=== PATIENT | female | born 1970 | race Caucasian/White ===

== ENCOUNTER 2016-07-25 19:48 | Emergency (ER) | payer OTHER ==
[~2016-07-25] VITALS: Ht 165.1 cm; Wt 87.6 kg
[~2016-07-25 19:48] MED LIST: GABA300C5 PO; LORA1TAB12 PO; MORP1CAP62 PO; NAPR500T PO; NEXI20CA PO; ZOLO50TA PO; [UNRECOGNIZED DRUG - CODE] PO
[2016-07-25 20:00] VITALS: BP 113/77; PULSE 92; RESP 18; RESP 22; TEMP 97.8; O2SAT 100
[2016-07-25] MEDS ORDERED: SODIUM CHLOR 0.9% 1000 ML INJ 1,000 ML IV ONE (21:14)
[2016-07-25] MEDS ORDERED: SODIUM CHLORIDE 0.9% FLUSH 5 ML FLUSH IVF PRN (21:15)
[2016-07-25] MEDS ORDERED: ONDANSETRON HCL 4 MG/2 ML VIAL IVP ONE (21:15)
[2016-07-25 22:00] VITALS: BP 113/68; PULSE 86; RESP 16; O2SAT 98
--- NOTE | 2016-07-25 22:00 | RADHPO ---
EXAM DATE/TIME: 07/25/2016 21:28 [facility] COMPARISON: No previous studies available for comparison. INDICATIONS : Generalized weakness and heavy breathing. MEDICAL HISTORY : None. SURGICAL HISTORY : None. ENCOUNTER: Initial ACUITY: 1 day PAIN SCORE: 0/10 LOCATION: Bilateral chest FINDINGS: A single view of the chest demonstrates the lungs to be symmetrically aerated without evidence of mas s, infiltrate or effusion. The cardiomediastinal contours are unremarkable. Osseous structures are intact. CONCLUSION: Normal examination. Juma Lee Jr., MD on July 25, 2016 at 21:58 Board Certified Radiologist. This report was verified electronically.
[2016-07-25 22:09] LABS: BLOOD, URINE NEG (NEG); GLUCOSE,URINE NEG (NEG); KETONE, URINE 15 mg/dL (NEG); NITRITE,URINE NEG (NEG)
[2016-07-25 22:09] LABS: AUTOMATED NEUTROPHIL # 3.3 TH/MM3 (1.8-7.7); BASOPHIL % 0.5 % (0.0-2.0); EOSINOPHIL # 0.1 TH/MM3 (0-0.4); EOSINOPHIL % 1.5 % (0.0-4.0); HEMATOCRIT 46.4 % (35.0-46.0); LYMPH % 32.9 % (9.0-44.0); MEAN CELL VOLUME 77.1 FL (80.0-100.0); MEAN CORPUSCULAR HEMOGLOBIN 24.3 PG (27.0-34.0); MEAN CORPUSCULAR HGB CONC 31.6 % (32.0-36.0); MONO % 12.8 % (0.0-8.0); NEUT % 52.3 % (16.0-70.0); PLATELET COUNT 299 TH/MM3 (150-450); RED BLOOD COUNT 6.02 MIL/MM3 (4.00-5.30); RED CELL DISTRIBUTION WIDTH 14.5 % (11.6-17.2); WHITE BLOOD COUNT 6.2 TH/MM3 (4.0-11.0)
[2016-07-25 22:16] VITALS: BP 135/75; PULSE 77; RESP 16; TEMP 98.1; O2SAT 98
[2016-07-25 22:16] LABS: HEMO FLAGS AUTO DIFF
[2016-07-25 22:22] LABS: CHLORIDE 102 MEQ/L (98-107); POTASSIUM 3.6 MEQ/L (3.5-5.1); SODIUM (NA) 137 MEQ/L (136-145)
[2016-07-25 22:25] LABS: METHOD OF COLLECTION CLEAN CATCH; URINE COLOR AMBER (YELLW/STRAW)
[2016-07-25 22:26] LABS: MUCUS URINE FEW /lpf (OCC); SQUAMOUS EPITHELIAL CELL URINE 0-5 /hpf (0-5)
[2016-07-25 22:27] LABS: ANION GAP 14 MEQ/L (5-15); BICARBONATE 21.4 MEQ/L (21.0-32.0); BLOOD UREA NITROGEN 17 MG/DL (7-18); MAGNESIUM 1.9 MG/DL (1.5-2.5)
[2016-07-25 22:27] LABS: CALCIUM OXALATE CRYSTALS,URINE MOD /hpf
[2016-07-25 22:28] LABS: COMMENT (UR) CULT NOT INDICATED; CULTURE IF INDICATED CULT NOT INDICATED
[2016-07-25 22:29] LABS: ALT (GPT) 24 U/L (10-53)
[2016-07-25 22:30] LABS: AST (GOT) 18 U/L (15-37); GLOMERULAR FILTRATION RATE 90 ML/MIN (>89)
[2016-07-25 22:31] LABS: TOTAL BILIRUBIN ADULT 0.3 MG/DL (0.2-1.0)
[2016-07-25 22:33] LABS: ALKALINE PHOSPHATASE 100 U/L (45-117)
[2016-07-25] MEDS ORDERED: CELE50CA PO (22:57)
[2016-07-25 23:04] LABS: PLATELET ESTIMATE SMEAR NORMAL (NORMAL); PLATELET MORPHOLOGY NORMAL (NORMAL); SCAN/DIFF AUTO DIFF CONFIRMED
[2016-07-25 23:30] VITALS: BP 119/75; PULSE 85; RESP 18; O2SAT 97
--- NOTE | 2016-07-25 23:34 | PD ---
HPI Chief Complaint: GI Complaint Time Seen by Provider: 21:02 Travel History International Travel<30 days: No Contact w/Intl Traveler<30days: No Traveled to known affect area: No History of Present Illness HPI 45-year-old female presents to the emergency department by private transportation the care of family for 4 days of multiple episodes of diarrhea. Patient denies chills, but fever up to 100.4F . Patient has had nausea but no vomiting. Patient denies generalized abdominal pain. Patient denies melena or hematochezia. Patient denies dysuria frequency urgency flank pain or hematuria. No reported vaginal discharge or vaginal bleeding. Patient denies any recent antibiotic use. Patient does report last antibiotic was use was the first week of May she took penicillin for a dental infection and had no issues with diarrhea while on the medication or subsequently. Patient denies any dietary indiscretion well water ingestion or foreign travel. No other family members or coworkers or similar symptoms. Patient is used Imodium over- the-counter without relief. No prior history of GI issues. Denies any recent respiratory illness symptoms. PFSH Past Medical History Narrative Medical Anemia anxiety GERD gastric bypass cholecystectomy hysterectomy cervical disc disease chronic knee injury; tobacco use; nursing notes reviewed Hx Anticoagulant Therapy: No Anemia: Yes Arthritis: Yes (OA) Anxiety: Yes Diabetes: No Diminished Hearing: No GERD: Yes Headaches: Yes Herniated Disk: Yes (Neck) Musculoskeletal: Yes (Bulging discs neck) ?: Not Menopausal: Yes : 4 Para: 5 Miscarriage: 0 : 0 Past Surgical History Abdominal Surgery: Yes (Gastric bypass, "tummy tuck") Cholecystectomy: Yes Hysterectomy: Yes Other Surgery: Yes Social History Alcohol Use: No Tobacco Use: Yes (1 PPD) Substance Use: No Allergies-Medications (Allergen,Severity, Reaction): Coded Allergies: Lortab (Verified Allergy, Severe, CANNOT BREATH, 07/25/16) [place] (Verified Allergy, Severe, Swelling, 07/25/16) Reported Meds & Prescriptions Reported Meds & Active Scripts Active Flagyl (Metronidazole) 500 Mg Tab 500 Mg PO BID 7 Days Lomotil (Diphenoxylate-Atropine) 2.5-0.025 Mg Tab 1 Tab PO Q6H PRN Reported Celebrex (Celecoxib) 50 Mg Cap 50 Mg PO HS Lorzone (Chlorzoxazone) 750 Mg Tab 750 Mg PO TID Zoloft (Sertraline HCl) 50 Mg Tab 50 Mg PO DAILY Morphine ER 24 HR (Morphine Sulfate) 20 Mg Caper 20 Mg PO BID Gabapentin 300 Mg Cap 600 Mg PO BID Nexium (Esomeprazole DR) 20 Mg Capdr 20 Mg PO BID Naproxen 500 Mg Tab 500 Mg PO BID Review of Systems Except as stated in HPI: all other systems reviewed are Neg General / Constitutional: Positive: Fever (100.4F), No: Chills HENT: No: Congestion Cardiovascular: No: Chest Pain or Discomfort Respiratory: No: Shortness of Breath Gastrointestinal: Positive: Nausea, Diarrhea, Abdominal Pain (intermittent; crampy), No: Vomiting, Hematemesis, Hematochezia, Loss of Appetite Genitourinary: No: Urgency, Frequency, Dysuria, Decreased Urinary Output Musculoskeletal: No: Myalgias, Arthralgias Skin: No Rash Neurologic: No: Weakness Psychiatric: No: Anxiety Hematologic/Lymphatic: No: Lymph Node Enlargement Physical Exam Narrative GENERAL: Well-developed well-nourished female in acute distress no respiratory distress SKIN: Warm and dry. HEAD: Normocephalic. EYES: No scleral icterus. No injection or drainage. NECK: Supple, trachea midline. No JVD or lymphadenopathy. CARDIOVASCULAR: Regular rate and rhythm without murmurs, gallops, or rubs. RESPIRATORY: Breath sounds equal bilaterally. No accessory muscle use. GASTROINTESTINAL: Abdomen soft, diffusely non-tender to direct palpation without guarding or rebound, nondistended. MUSCULOSKELETAL: No cyanosis, or edema. Right knee brace which patient reports is chronic. BACK: Nontender without obvious deformity. No CVA tenderness. Data Data Last Documented VS Vital Signs Date Time Temp Pulse Resp B/P Pulse Ox O2 Delivery O2 Flow Rate FiO2 07/25/16 22:16 98.1 77 16 135/75 98 Room Air Orders Complete Blood Count With Diff (07/25/16 21:14) Comprehensive Metabolic Panel (07/25/16 21:14) Urinalysis - C+S If Indicated (07/25/16 21:14) Lipase (07/25/16 21:14) Ct Abd/Pel W Iv Contrast(Rout) (07/25/16 ) Iv Access Insert/Monitor (07/25/16 21:14) Ecg Monitoring (07/25/16 21:14) Oximetry (07/25/16 21:14) Ondansetron Inj (Zofran Inj) (07/25/16 21:15) Sodium Chlor 0.9% 1000 Ml Inj (Ns 1000 M (07/25/16 21:14) Sodium Chloride 0.9% Flush (Ns Flush) (07/25/16 21:15) Blood Culture (07/25/16 21:14) C Diff Toxin Pcr (07/25/16 21:14) Enteric Path (Stool) (07/25/16 21:14) Chest, Single Ap (07/25/16 21:14) Ed Urine Pregnancytest Poc (07/25/16 21:14) Magnesium (Mg) (07/25/16 21:14) Iohexol 350 Inj (Omnipaque 350 Inj) (07/25/16 23:48) Sodium Chlor 0.9% 1000 Ml Inj (Ns 1000 M (07/26/16 00:45) Labs Laboratory Tests Test 07/25/16 07/25/16 21:10 21:50 Urine Collection Type CLEAN CATCH Urine Color SAVITA Urine Turbidity CLEAR Urine pH 5.0 Urine Specific [place] GREATER THAN 1.035 Urine Protein TRACE mg/dL Urine Glucose (UA) NEG mg/dL Urine Ketones 15 mg/dL Urine Occult Blood NEG Urine Nitrite NEG Urine Bilirubin NEG Urine Leukocyte Esterase NEG Urine Squamous Epithelial 0-5 /hpf Cells Urine Calcium Oxalate Crystals MOD /hpf Urine Mucus FEW /lpf Microscopic Urinalysis Comment CULT NOT INDICATED White Blood Count 6.2 TH/MM3 Red Blood Count 6.02 MIL/MM3 Hemoglobin 14.6 GM/DL Hematocrit 46.4 % Mean Corpuscular Volume 77.1 FL Mean Corpuscular Hemoglobin 24.3 PG Mean Corpuscular Hemoglobin 31.6 % Concent Red Cell Distribution Width 14.5 % Platelet Count 299 TH/MM3 Mean Platelet Volume 8.3 FL Neutrophils (%) (Auto) 52.3 % Lymphocytes (%) (Auto) 32.9 % Monocytes (%) (Auto) 12.8 % Eosinophils (%) (Auto) 1.5 % Basophils (%) (Auto) 0.5 % Neutrophils # (Auto) 3.3 TH/MM3 Lymphocytes # (Auto) 2.0 TH/MM3 Monocytes # (Auto) 0.8 TH/MM3 Eosinophils # (Auto) 0.1 TH/MM3 Basophils # (Auto) 0.0 TH/MM3 CBC Comment AUTO DIFF Differential Comment AUTO DIFF CONFIRMED Platelet Estimate NORMAL Platelet Morphology Comment NORMAL Sodium Level 137 MEQ/L Potassium Level 3.6 MEQ/L Chloride Level 102 MEQ/L Carbon Dioxide Level 21.4 MEQ/L Anion Gap 14 MEQ/L Blood Urea Nitrogen 17 MG/DL Creatinine 0.70 MG/DL Estimat Glomerular Filtration 90 ML/MIN Rate Random Glucose 76 MG/DL Calcium Level 9.8 MG/DL Magnesium Level 1.9 MG/DL Total Bilirubin 0.3 MG/DL Aspartate Amino Transf 18 U/L (AST/SGOT) Alanine Aminotransferase 24 U/L (ALT/SGPT) Alkaline Phosphatase 100 U/L Total Protein 8.7 GM/DL Albumin 3.1 GM/DL Lipase 67 U/L [facility] Medical Decision Making Medical Screen Exam Complete: Yes Emergency Medical Condition: Yes Medical Record Reviewed: Yes Interpretation(s) CBC with automated differential hemoconcentration with hematocrit of 46.4% normal total white cell count and automated differential Complete metabolic panel with lipase values are within normal range including normal electrolytes bicarbonate and anion gap Urinalysis: Elevated specific gravity greater than 1.035 as well as mild ketones and calcium oxalate crystals otherwise values grossly within normal range CT abd/pel: No acute abnormality per reading radiologist evidence of previous gastric bypass CONCLUSION: 1. No acute abnormality. 2. Prior gastric bypass. 3. Prior cholecystectomy. 4. Bilateral L5 pars defects with anterolisthesis. Juma Lee Jr., MD on July 26, 2016 at 0:19 Board Certified Radiologist. This report was verified electronically. Laboratory Tests Test 07/25/16 07/25/16 21:10 21:50 Urine Collection Type CLEAN CATCH Urine Color SAVITA Urine Turbidity CLEAR Urine pH 5.0 Urine Specific [place] GREATER THAN 1.035 Urine Protein TRACE mg/dL Urine Glucose (UA) NEG mg/dL Urine Ketones 15 mg/dL Urine Occult Blood NEG Urine Nitrite NEG Urine Bilirubin NEG Urine Leukocyte Esterase NEG Urine Squamous Epithelial 0-5 /hpf Cells Urine Calcium Oxalate Crystals MOD /hpf Urine Mucus FEW /lpf Microscopic Urinalysis Comment CULT NOT INDICATED White Blood Count 6.2 TH/MM3 Red Blood Count 6.02 MIL/MM3 Hemoglobin 14.6 GM/DL Hematocrit 46.4 % Mean Corpuscular Volume 77.1 FL Mean Corpuscular Hemoglobin 24.3 PG Mean Corpuscular Hemoglobin 31.6 % Concent Red Cell Distribution Width 14.5 % Platelet Count 299 TH/MM3 Mean Platelet Volume 8.3 FL Neutrophils (%) (Auto) 52.3 % Lymphocytes (%) (Auto) 32.9 % Monocytes (%) (Auto) 12.8 % Eosinophils (%) (Auto) 1.5 % Basophils (%) (Auto) 0.5 % Neutrophils # (Auto) 3.3 TH/MM3 Lymphocytes # (Auto) 2.0 TH/MM3 Monocytes # (Auto) 0.8 TH/MM3 Eosinophils # (Auto) 0.1 TH/MM3 Basophils # (Auto) 0.0 TH/MM3 CBC Comment AUTO DIFF Differential Comment AUTO DIFF CONFIRMED Platelet Estimate NORMAL Platelet Morphology Comment NORMAL Sodium Level 137 MEQ/L Potassium Level 3.6 MEQ/L Chloride Level 102 MEQ/L Carbon Dioxide Level 21.4 MEQ/L Anion Gap 14 MEQ/L Blood Urea Nitrogen 17 MG/DL Creatinine 0.70 MG/DL Estimat Glomerular Filtration 90 ML/MIN Rate Random Glucose 76 MG/DL Calcium Level 9.8 MG/DL Magnesium Level 1.9 MG/DL Total Bilirubin 0.3 MG/DL Aspartate Amino Transf 18 U/L (AST/SGOT) Alanine Aminotransferase 24 U/L (ALT/SGPT) Alkaline Phosphatase 100 U/L Total Protein 8.7 GM/DL Albumin 3.1 GM/DL Lipase 67 U/L Differential Diagnosis Diarrheal illness, gastroenteritis, food borne illness, parasite, pseudomonas colitis, dehydration, electrolyte disturbance Narrative Course Patient with 3 bouts of diarrhea while in the emergency department IV access since collected and sent for resulting IV fluids administered; CT imaging study ordered Diagnosis Primary Impression: Diarrhea Referrals: Primary Care Physician 1 day Patient Instructions: General Instructions Additional Instructions: Follow clear liquid diet for next 12-24 hours advance as tolerated to bland/ [place] diet then regular diet as tolerated Follow-up with your primary care physician call office in a.m. for follow-up appointment this week Monitor temperature every 4 hours with thermometer and take as needed acetaminophen/Tylenol every 4 hours for fever 100.4F or greater May take ibuprofen/Advil/Motrin every 6-8 hours as needed for fever 100.4F or greater or for pain associated with inflammation Return to the emergency department for any concerns or change in condition Med/Other Pt SpecificInfo: Prescription(s) given Scripts Metronidazole (Flagyl)500 Mg Fiu132 Mg PO BID 7 Days Ref 0 Prov:Ghazal Blair MD 07/26/16 Diphenoxylate-Atropine (Lomotil)2.5-0.025 Mg Tab1 Tab PO Q6H PRN (DIARRHEA) #7 TAB Ref 0 Prov:Ghazal Blair MD 07/26/16 Disposition: 01 DISCHARGE HOME Condition: Stable Ghazal Blair MD Jul 25, 2016 23:34
[2016-07-25] MEDS ORDERED: IOHEXOL 350 MG/ML 10 ML VIAL (for RAD DIAG) IV ONE (23:48)
--- NOTE | 2016-07-26 00:26 | RADHPO ---
EXAM DATE/TIME: 07/25/2016 23:28 [facility] COMPARISON: No previous studies available for comparison. INDICATIONS : Abdominal cramping and diarrhea for five days. IV CONTRAST: 95 cc Omnipaque 350 (iohexol) IV ORAL CONTRAST: No oral contrast ingested. RADIATION DOSE: 18.16 CTDIvol (mGy) MEDICAL HISTORY : None SURGICAL HISTORY : Gastric bypass. Cholecystectomy.Hysterectomy. ENCOUNTER: Initial ACUITY: 4 - 6 days PAIN SCALE: 5/10 LOCATION: Abdomen. TECHNIQUE: Volumetric scanning of the abdomen and pelvis was performed. Using automated exposure control and ad justment of the mA and/or kV according to patient size, radiation dose was kept as low as reasonably achievable to obtain optimal diagnostic quality images. FINDINGS: LOWER LUNGS: The visualized lower lungs are clear. LIVER: Homogeneous density without lesion. There is no dilation of the biliary tree. Gallbladder is surgica lly absent. SPLEEN: Normal size without lesion. PANCREAS: Within normal limits. KIDNEYS: Normal in size and shape. There is no mass, stone or hydronephrosis. ADRENAL GLANDS: Within normal limits. VASCULAR: There is no aortic aneurysm. BOWEL/MESENTERY: Prior gastric bypass surgery. The stomach, small bowel, and colon demonstrate no acute abnormality. There is no free intraperitoneal air or fluid. ABDOMINAL WALL: A ventral hernia containing omental fat. RETROPERITONEUM: There is no lymphadenopathy. BLADDER: No wall thickening or mass. REPRODUCTIVE: Within normal limits. INGUINAL: There is no lymphadenopathy or hernia. MUSCULOSKELETAL: Within normal limits for patient age. Bilateral L5 pars defects with grade 1 anterolisthesis of L5 on S1. CONCLUSION: 1. No acute abnormality. 2. Prior gastric bypass. 3. Prior cholecystectomy. 4. Bilateral L5 pars defects with anterolisthesis. Juma Lee Jr., MD on July 26, 2016 at 0:19 Board Certified Radiologist. This report was verified electronically.
[2016-07-26] MEDS ORDERED: LOMO2.5T PO (00:45)
[2016-07-26] MEDS ORDERED: METR-1 PO (00:45)
[2016-07-26] MEDS ORDERED: SODIUM CHLOR 0.9% 1000 ML INJ 1,000 ML IV ONE (00:45)
[2016-07-26 00:48] VITALS: BP 117/72; PULSE 89; RESP 16; O2SAT 97
[2016-07-26 03:52] LABS: C. DIFF EPI 027 PRESUMPTIVE NEGATIVE (NEGATIVE); C. DIFF TOXIN PCR NEGATIVE (NEGATIVE)
== END 2016-07-26 01:10 | disposition home or self-care (01) ==
LOC: PHED 19:48
DX: R19.7 Diarrhea, unspecified (principal)
CPT/HCPCS: 71010; 74177; 80053; 81001; 83690; 83735; 84703; 85025; 87040; 87493; 87506; 96361; 96374; 99284; J2405; J7030; Q9967

== ENCOUNTER 2016-10-08 12:58 | Emergency (ER) | payer OTHER ==
[~2016-10-08] VITALS: Ht 165.1 cm; Wt 77.9 kg
[~2016-10-08 12:58] MED LIST changes: +CELE50CA PO; +LOMO2.5T PO; -LORA1TAB12 PO; +METR-1 PO
[2016-10-08 13:16] VITALS: BP 148/99; PULSE 82; RESP 18; TEMP 97.6; O2SAT 98
[2016-10-08] MEDS ORDERED: PERC10TA27 PO (14:07)
[2016-10-08] MEDS ORDERED: LORA1TAB12 PO (14:07)
--- NOTE | 2016-10-08 14:29 | PD ---
HPI Chief Complaint: Fall Time Seen by Provider: 14:29 Travel History International Travel<30 days: No Contact w/Intl Traveler<30days: No Traveled to known affect area: No History of Present Illness HPI 45 year old female PMH chronic neck pain presents to the ED for evaluation after fall at 7 AM. Patient states she lost her balance, tripped, fell landing the rug. She also endorses in the posterior aspect of her head. She denies loss of consciousness. On presentation she endorses exacerbation of her neck pain, pain in the back of the head, dental pain, pain under the right eye, laceration of the face. She denies headache, dizziness, nausea, or vomiting. She numbness, tingling, weakness, limitations to range of motion of the extremities. She is unsure of the date of her last tetanus immunization. She' s been treating at home by applying ice to the face. Denies chronic health problems, takes multiple pain medications daily. PFSH Past Medical History Hx Anticoagulant Therapy: No Anemia: Yes Arthritis: Yes (OA) Anxiety: Yes Diabetes: No Diminished Hearing: No GERD: Yes Headaches: Yes Herniated Disk: Yes (Neck) Musculoskeletal: Yes (Bulging discs neck,back) Tetanus Vaccination: < 5 Years Influenza Vaccination: Yes ?: Not Menopausal: Yes : 4 Para: 5 Miscarriage: 0 : 0 Past Surgical History Abdominal Surgery: Yes (Gastric bypass, "tummy tuck") Cholecystectomy: Yes Hysterectomy: Yes Other Surgery: Yes Social History Alcohol Use: No Tobacco Use: Yes (1 PPD) Substance Use: No Allergies-Medications (Allergen,Severity, Reaction): Coded Allergies: Lortab (Verified Allergy, Severe, CANNOT BREATH, 10/08/16) [place] (Verified Allergy, Severe, Swelling, 10/08/16) Reported Meds & Prescriptions Reported Meds & Active Scripts Active Reported Percocet (Oxycodone-Acetaminophen) 10-325 mg Tab 1 Tab PO Q6H PRN Lorazepam 1 Mg Tab 1 Mg PO HS PRN Celebrex (Celecoxib) 50 Mg Cap 250 Mg PO BID Lorzone (Chlorzoxazone) 750 Mg Tab 750 Mg PO TID Zoloft (Sertraline HCl) 50 Mg Tab 50 Mg PO DAILY Morphine ER 24 HR (Morphine Sulfate) 20 Mg Caper 20 Mg PO BID Gabapentin 300 Mg Cap 300 Mg PO TID Nexium (Esomeprazole DR) 20 Mg Capdr 20 Mg PO BID Review of Systems Except as stated in HPI: all other systems reviewed are Neg Physical Exam Narrative GENERAL: Well-nourished, well-developed white female in no acute distress sitting up on the stretcher, alert, oriented. SKIN: Warm and dry. 2-3 cm abrasion under the lateral aspect of the right eye. 1.5 cm laceration under the right nostril. Thorough evaluation reveals no other edema, ecchymosis, abrasion, or laceration of the skin. HEAD: Normocephalic. Atraumatic. No raccoon eyes or mcknight sign. + enderness to palpation of the posterior left occiput. No bony step-offs. No malocclusion of the teeth. EYES: No scleral icterus. No injection or drainage. PERRLA. EOMI. ENT: Pearly stratton tympanic membrane is bilaterally. Nasal mucosa is moist. Oropharynx without erythema, edema or exudate. NECK: Supple, trachea midline. No JVD or lymphadenopathy. No midline tenderness to palpation. Tender to palpation of the paraspinal musculature bilaterally. Patient retains full, active, range of motion of the neck. CARDIOVASCULAR: Regular rate and rhythm without murmurs, gallops, or rubs. 2+ DP and radial pulses bilaterally. RESPIRATORY: Breath sounds clear and equal bilaterally. No accessory muscle use. GASTROINTESTINAL: Abdomen soft, non-tender, nondistended. + Bowel sounds MUSCULOSKELETAL: No cyanosis, or edema. No tenderness to palpation or limitations to range of motion of the joints of the upper and lower extremities bilaterally. NEUROLOGICAL: Awake and alert. Cranial nerves II through XII intact. Motor and sensory grossly within normal limits. 5/5 muscle strength in all muscle groups. Normal speech. BACK: Nontender without obvious deformity. No CVA tenderness. No midline tenderness. Data Data Last Documented VS Vital Signs Date Time Temp Pulse Resp B/P Pulse Ox O2 Delivery O2 Flow Rate FiO2 10/08/16 16:11 75 16 140/79 97 10/08/16 13:[address] Brain W/O Iv Contrast(Rout) (10/08/16 14:36) Ct Cerv Spine W/O Contrast (10/08/16 14:36) Ct Facial Bones W/O Iv Cont (10/08/16 14:36) Tetanus/Diphtheria Tox Adult (Tetanus/Di (10/08/16 14:45) Lidocai-Epi 1%-1:100,000 Inj (Xylocaine- (10/08/16 14:45) MDM Medical Decision Making Medical Screen Exam Complete: Yes Emergency Medical Condition: Yes Differential Diagnosis Abrasion versus laceration versus facial fracture versus acute exacerbation of chronic neck pain versus cervical fracture versus Narrative Course 45 year old female PMH chronic neck pain presents to the ED for evaluation after fall at 7 AM. Patient states she lost her balance, tripped, fell landing the rug. States she fell on her face but somehow hit the posterior aspect of her head as well. Negative LOC. Complains of neck pain, facial pain, facial laceration, headache on presentation. Unsure of last tetanus immunization. Vitals reviewed. Physical exam awake and alert, oriented white female in no acute distress. She has a contusion under the right eye, 1.5 cm laceration under the right nostril, positive midline tenderness to palpation of the cervical spine and facial bones. Ice pack was applied. CT of the head and facial bones negative for acute fracture per radiology read. CT of the neck reveals degenerative changes with no acute bony injury per radiology read. Tetanus immunization was updated. Laceration repair was performed. Please see my procedure note for details. This is musculoskeletal pain, contusion and laceration following fall. Patient was instructed to continue her at home pain medications, symptomatic treatment for swelling, return for suture removal in 5- 7 days. We discussed signs of infection and reasons to return to the ED. She indicated understanding of the instructions. She is stable and discharged home. Procedures Procedure Narrative LACERATION LOCATION: Right upper lip LENGTH: 1.5 cm NUMBER OF STITCHES/EWA: 5 REPAIR: The area of the laceration was prepped with Betadine and sterilely draped. The laceration was infiltrated with 1% lidocaine with epinephrine. The wound was copiously irrigated and explored without evidence of foreign body, tendon injury or neurovascular injury. The wound was closed using 6-0 Prolene. This was a single layer repair. A sterile dressing was applied. The patient was advised to keep the dressing clean and dry. Patient tolerated the procedure well. Diagnosis Primary Impression: Facial contusion Qualified Code: S00.83XA - Facial contusion, initial encounter Additional Impressions: Facial laceration Qualified Code: S01.81XA - Facial laceration, initial encounter Neck pain Musculoskeletal pain Referrals: Primary Care Physician Patient Instructions: Contusion in Adults (ED), Facial Laceration (ED), General Instructions Additional Instructions: Rest, hydrate. You may bathe normally. Do not submerge the wound. After bathing pat of wound dry. Allow the wound to air dry for 10-15 minutes. Apply a thin layer of antibiotic ointment and a clean, dry dressing. Utilize [id number] pain medications, as described on the label, as needed. Follow-up with your primary care provider this week. Return to the ED for any urgent or emergent medical condition. Disposition: 01 DISCHARGE HOME Condition: Stable aSnta Camacho Oct 08, 2016 14:29
[2016-10-08] MEDS ORDERED: LIDOCAINE 1%/EPINEPHrine 1:100,000 SOLN 20 ML VIAL INFIL ONE (14:45)
[2016-10-08] MEDS ORDERED: TETANUS/DIPHTHERIA TOXOID ADULT 0.5 ML VIAL IM ONE (14:45)
--- NOTE | 2016-10-08 15:07 | RADHPO ---
EXAM DATE/TIME: 10/08/2016 14:45 [facility] COMPARISON: No previous studies available for comparison. INDICATIONS : Trauma. Fall. Hit right side of face. RADIATION DOSE: 58.83 CTDIvol (mGy) MEDICAL HISTORY : Gastroesophageal reflux disease. SURGICAL HISTORY : Gastric bypass. Hysterectomy.Cholecystectomy. ENCOUNTER: Initial ACUITY: 1 day PAIN SCALE: 0/10 LOCATION: cranial TECHNIQUE: Multiple contiguous axial images were obtained of the head. Using automated exposure control and adj ustment of the mA and/or kV according to patient size, radiation dose was kept as low as reasonably a chievable to obtain optimal diagnostic quality images. FINDINGS: CEREBRUM: The ventricles are normal for age. No evidence of midline shift, mass lesion, hemorrhage or acute in farction. No extra-axial fluid collections are seen. POSTERIOR FOSSA: The cerebellum and brainstem are intact. The 4th ventricle is midline. The cerebellopontine angle i s unremarkable. EXTRACRANIAL: The visualized portion of the orbits is intact. SKULL: The calvaria is intact. No evidence of skull fracture. CONCLUSION: Normal examination. Juma Lee Jr., MD on October 08, 2016 at 15:04 Board Certified Radiologist. This report was verified electronically.
--- NOTE | 2016-10-08 15:10 | RADHPO ---
EXAM DATE/TIME: 10/08/2016 14:45 [facility] COMPARISON: No previous studies available for comparison. INDICATIONS : Trauma. Fall. Hit right side of face. Abrasion below right eye. Laceration right side of nose. RADIATION DOSE: 25.58 CTDIvol (mGy) MEDICAL HISTORY : Gastroesophageal reflux disease. SURGICAL HISTORY : Gastric bypass. Hysterectomy.Cholecystectomy. ENCOUNTER: Initial ACUITY: 1 day PAIN SCORE: 7/10 LOCATION: Right facial TECHNIQUE: Volumetric scanning of the facial bones was performed. Using automated exposure control and adjustme nt of the mA and/or kV according to patient size, radiation dose was kept as low as reasonably achiev able to obtain optimal diagnostic quality images. FINDINGS: ORBITS: The orbital and infraorbital osseous structures are intact. The retroconal structures have a normal configuration. No radiopaque foreign bodies are seen. NASAL BONE: The nasal bone and maxillary spine are intact ZYGOMATIC ARCHES: Symmetric without evidence of fracture. SINUSES: The maxillary, ethmoid and frontal sinuses are intact. No air-fluid levels seen. NASAL CAVITY: The nasal septum is intact and midline. The lacrimal ducts are intact. SOFT TISSUES: No radiopaque foreign bodies seen. No soft-tissue swelling is seen. INTRACRANIAL: No intracranial air seen. CRIBIFORM PLATE: Grossly intact. CONCLUSION: Normal examination. Juma Lee Jr., MD on October 08, 2016 at 15:06 Board Certified Radiologist. This report was verified electronically.
--- NOTE | 2016-10-08 15:12 | RADHPO ---
EXAM DATE/TIME: 10/08/2016 14:45 [facility] COMPARISON: CT CERVICAL SPINE W/O CONTRAST, March 18, 2015, 15:15. INDICATIONS : Trauma. Fall. Hit right side of face. Right neck pain. RADIATION DOSE: 24.55 CTDIvol (mGy) MEDICAL HISTORY : Gastroesophageal reflux disease. SURGICAL HISTORY : Gastric bypass. Cholecystectomy. Hysterectomy. ENCOUNTER: Initial ACUITY: 1 day PAIN SCALE: 8/10 LOCATION: Right neck TECHNIQUE: Volumetric scanning of the cervical spine was performed. Multiplanar reconstructions i n the sagittal, coronal and oblique axial planes were performed. Using automated exposure control a nd adjustment of the mA and/or kV according to patient size, radiation dose was kept as low as reason ably achievable to obtain optimal diagnostic quality images. FINDINGS: There are degenerative changes in the cervical spine. Alignment is anatomic. C2-C3: The bony spinal canal is normal in size. No evidence of disc bulge or herniation. The neura l foramina are bilaterally patent. C3-C4: The bony spinal canal is normal in size. No evidence of disc bulge or herniation. The neura l foramina are bilaterally patent. C4-C5: Mild uncinate ridging is present. Neural foramina are adequate. C5-C6: Mild uncinate ridging is present without significant spinal stenosis or neural foraminal encr oachment. C6-C7: The bony spinal canal is normal in size. No evidence of disc bulge or herniation. The neura l foramina are bilaterally patent. C7-T1: The bony spinal canal is normal in size. No evidence of disc bulge or herniation. The neura l foramina are bilaterally patent. CONCLUSION: 1. Degenerative changes as described above. There is no evidence for a fracture. 2. There is mild disc disease at the C5-6 and C6-7 level slightly to the right of midline. Luciano Ortiz MD FACR on October 08, 2016 at 15:05 Board Certified Radiologist. This report was verified electronically.
[2016-10-08 16:11] VITALS: BP 140/79
== END 2016-10-08 16:12 | disposition home or self-care (01) ==
LOC: PHEFT 12:58
DX: S01.511A Laceration without foreign body of lip, initial encounter (principal); S00.83XA Contusion of other part of head, initial encounter; Z23 Encounter for immunization; W18.09XA Striking against other object with subsequent fall, initial encounter
CPT/HCPCS: 12011; 70450; 70486; 72125; 90471; 90714

== ENCOUNTER 2017-02-27 15:15 | Observation (INO) | payer OTHER ==
[~2017-02-27] VITALS: Ht 172.7 cm; Wt 78.0 kg
[~2017-02-27 15:15] MED LIST changes: -LOMO2.5T PO; +LORA1TAB12 PO; -METR-1 PO; -NAPR500T PO; +PERC10TA27 PO
[2017-02-27] MEDS ORDERED: LORazepam 2 MG/ML VIAL ONE (15:27)
[2017-02-27] MEDS ORDERED: HALOPERIDOL LACTATE 5 MG/ML AMP ONE (15:27)
[2017-02-27] MEDS ORDERED: LORazepam 2 MG/ML VIAL IM ONE (15:30)
[2017-02-27] MEDS ORDERED: HALOPERIDOL LACTATE 5 MG/ML AMP IM ONE (15:30)
[2017-02-27 15:37] VITALS: BP 151/83; PULSE 105; TEMP 97.2; O2SAT 95
--- NOTE | 2017-02-27 15:39 | PD ---
HPI Chief Complaint: altered mental status Time Seen by Provider: 15:26 Travel History International Travel<30 days: No Contact w/Intl Traveler<30days: No Traveled to known affect area: No History of Present Illness HPI 46 years old female was [place] acted and brought in by evaluation. Patient was reported abusing drugs today. EMS was called by people around her because patient was reported not acting right. Patient was combative and not providing any information. Patient was reportedly cutting herself on the left wrist. PFSH Past Medical History Hx Anticoagulant Therapy: No Anemia: Yes Arthritis: Yes (OA) Anxiety: Yes Diabetes: No Diminished Hearing: No GERD: Yes Headaches: Yes Herniated Disk: Yes (Neck) Musculoskeletal: Yes (Bulging discs neck,back) Menopausal: Yes : 4 Para: 5 Miscarriage: 0 : 0 Past Surgical History Abdominal Surgery: Yes (Gastric bypass, "tummy tuck") Cholecystectomy: Yes Hysterectomy: Yes Other Surgery: Yes Social History Alcohol Use: No Tobacco Use: Yes (1 PPD) Substance Use: No Allergies-Medications (Allergen,Severity, Reaction): Coded Allergies: Lortab (Verified Allergy, Severe, CANNOT BREATH, 02/27/17) Grady (Verified Allergy, Severe, Swelling, 02/27/17) Reported Meds & Prescriptions Reported Meds & Active Scripts Active Reported Lomaira (Phentermine HCl) 8 Mg Tab 37.5 Mg PO DAILY Percocet (Oxycodone-Acetaminophen) 10-325 mg Tab 1 Tab PO Q6H PRN Lorazepam 1 Mg Tab 1 Mg PO HS PRN Celebrex (Celecoxib) 50 Mg Cap 250 Mg PO BID Lorzone (Chlorzoxazone) 750 Mg Tab 750 Mg PO TID Zoloft (Sertraline HCl) 50 Mg Tab 50 Mg PO DAILY Morphine ER 24 HR (Morphine Sulfate) 20 Mg Caper 20 Mg PO BID Gabapentin 300 Mg Cap 300 Mg PO TID Nexium (Esomeprazole DR) 20 Mg Capdr 20 Mg PO BID Review of Systems General / Constitutional: No: Fever Eyes: No: Visual changes HENT: No: Headaches Cardiovascular: No: Chest Pain or Discomfort Respiratory: No: Shortness of Breath Gastrointestinal: No: Abdominal Pain Genitourinary: No: Dysuria Musculoskeletal: No: Pain Skin: No Rash Neurologic: No: Weakness Psychiatric: No: Depression Endocrine: No: Polydipsia Hematologic/Lymphatic: No: Easy Bruising Physical Exam Narrative GENERAL: Well-nourished, well-developed patient. SKIN: Focused skin assessment warm/dry. HEAD: Normocephalic. EYES: No scleral icterus. No injection or drainage. NECK: Supple, trachea midline. No JVD or lymphadenopathy. CARDIOVASCULAR: Regular rate and rhythm without murmurs, gallops, or rubs. RESPIRATORY: Breath sounds equal bilaterally. No accessory muscle use. GASTROINTESTINAL: Abdomen soft, non-tender, nondistended. MUSCULOSKELETAL: No cyanosis, or edema. BACK: Nontender without obvious deformity. No CVA tenderness. Patient has several long superficial abrasions to the left wrist. No active bleeding. Data Data Last Documented VS Vital Signs Date Time Temp Pulse Resp B/P Pulse Ox O2 Delivery O2 Flow Rate FiO2 02/27/17 17:16 100 19 124/67 94 Room Air 02/27/17 15:37 97.2 Orders Haloperidol Inj (Haldol Inj) (02/27/17 15:30) Lorazepam Inj (Ativan Inj) (02/27/17 15:30) Haloperidol Inj (Haldol Inj) (02/27/17 15:27) Lorazepam Inj (Ativan Inj) (02/27/17 15:27) Complete Blood Count With Diff (02/27/17 15:29) Comprehensive Metabolic Panel (02/27/17 15:29) Psych Screen (02/27/17 15:29) Drug Screen, Random Urine (02/27/17 15:29) Alcohol (Ethanol) (02/27/17 15:29) Electrocardiogram (02/27/17 15:49) Lorazepam Inj (Ativan Inj) (02/27/17 17:00) Restraints Non-Violent MARTHA.Q3H (02/27/17 17:31) Lorazepam Inj (Ativan Inj) (02/27/17 19:00) Sodium Chlor 0.9% 1000 Ml Inj (Ns 1000 M (02/27/17 19:15) Labs Laboratory Tests Test 02/27/17 02/27/17 15:50 16:04 White Blood Count 11.8 TH/MM3 Red Blood Count 5.48 MIL/MM3 Hemoglobin 13.5 GM/DL Hematocrit 41.9 % Mean Corpuscular Volume 76.6 FL Mean Corpuscular Hemoglobin 24.7 PG Mean Corpuscular Hemoglobin 32.3 % Concent Red Cell Distribution Width 15.6 % Platelet Count 317 TH/MM3 Mean Platelet Volume 8.9 FL Neutrophils (%) (Auto) 77.7 % Lymphocytes (%) (Auto) 15.6 % Monocytes (%) (Auto) 5.8 % Eosinophils (%) (Auto) 0.3 % Basophils (%) (Auto) 0.6 % Neutrophils # (Auto) 9.2 TH/MM3 Lymphocytes # (Auto) 1.8 TH/MM3 Monocytes # (Auto) 0.7 TH/MM3 Eosinophils # (Auto) 0.0 TH/MM3 Basophils # (Auto) 0.1 TH/MM3 CBC Comment DIFF FINAL Differential Comment Sodium Level 144 MEQ/L Potassium Level 3.4 MEQ/L Chloride Level 112 MEQ/L Carbon Dioxide Level 21.5 MEQ/L Anion Gap 11 MEQ/L Blood Urea Nitrogen 19 MG/DL Creatinine 0.92 MG/DL Estimat Glomerular Filtration 66 ML/MIN Rate Random Glucose 124 MG/DL Calcium Level 8.8 MG/DL Total Bilirubin 0.5 MG/DL Aspartate Amino Transf 12 U/L (AST/SGOT) Alanine Aminotransferase 15 U/L (ALT/SGPT) Alkaline Phosphatase 97 U/L Total Protein 8.1 GM/DL Albumin 3.4 GM/DL Ethyl Alcohol Level LESS THAN 3 MG/DL Urine Opiates Screen NEG Urine Barbiturates Screen NEG Urine Amphetamines Screen POS Urine Benzodiazepines Screen POS Urine Cocaine Screen NEG Urine Cannabinoids Screen NEG MDM Medical Decision Making Medical Screen Exam Complete: Yes Emergency Medical Condition: Yes Interpretation(s) 1857 PM. CBC WBC 11.8. Hemoglobin 13.5. MCV 76.6. 77 neutrophil. Potassium 3.4. BUN 19. Urine drug screen positive for amphetamine and benzodiazepine. Differential Diagnosis Differential diagnosis including substance-induced mood disorder, psychosis, schizophrenia. Narrative Course 46 years old female was San[place] acted and brought in for combative behavior and substance abuse. Patient was combative upon arrival. Haldol 5 mg IM. Ativan 2 mg IM given. Diagnosis Primary Impression: Substance induced mood disorder Lam Miller MD Feb 27, 2017 15:39 Lam Miller MD Feb 27, 2017 15:39
[2017-02-27] MEDS ORDERED: PHEN-556 PO (15:44)
[2017-02-27 16:41] LABS: AUTOMATED NEUTROPHIL # 9.2 TH/MM3 (1.8-7.7); BASOPHIL # 0.1 TH/MM3 (0-0.2); BASOPHIL % 0.6 % (0.0-2.0); EOSINOPHIL % 0.3 % (0.0-4.0); HEMATOCRIT 41.9 % (35.0-46.0); HEMO FLAGS DIFF FINAL; LYMPH % 15.6 % (9.0-44.0); LYMPHOCYTE # 1.8 TH/MM3 (1.0-4.8); MEAN CELL VOLUME 76.6 FL (80.0-100.0); MEAN CORPUSCULAR HEMOGLOBIN 24.7 PG (27.0-34.0); MEAN CORPUSCULAR HGB CONC 32.3 % (32.0-36.0); MONO % 5.8 % (0.0-8.0); NEUT % 77.7 % (16.0-70.0); PLATELET COUNT 317 TH/MM3 (150-450); RED BLOOD COUNT 5.48 MIL/MM3 (4.00-5.30); RED CELL DISTRIBUTION WIDTH 15.6 % (11.6-17.2); WHITE BLOOD COUNT 11.8 TH/MM3 (4.0-11.0)
[2017-02-27 16:54] LABS: AMPHETAMINE, URINE POS (NEG); BARBITURATES, URINE NEG (NEG); COCAINE, URINE NEG (NEG)
[2017-02-27] MEDS ORDERED: LORazepam 2 MG/ML VIAL IV PUSH ONE ×4 (17:00→21:00)
[2017-02-27 17:01] LABS: ALT (GPT) 15 U/L (10-53); ANION GAP 11 MEQ/L (5-15); AST (GOT) 12 U/L (15-37); BICARBONATE 21.5 MEQ/L (21.0-32.0); BLOOD UREA NITROGEN 19 MG/DL (7-18); CHLORIDE 112 MEQ/L (98-107); GLOMERULAR FILTRATION RATE 66 ML/MIN (>89); POTASSIUM 3.4 MEQ/L (3.5-5.1); SODIUM (NA) 144 MEQ/L (136-145)
[2017-02-27 17:03] LABS: ALKALINE PHOSPHATASE 97 U/L (45-117); TOTAL BILIRUBIN ADULT 0.5 MG/DL (0.2-1.0)
[2017-02-27 17:16] VITALS: BP 124/67; PULSE 100; RESP 19; O2SAT 94
[2017-02-27 19:00] VITALS: BP 132/71; PULSE 99; RESP 18; O2SAT 94
[2017-02-27] MEDS ORDERED: SODIUM CHLOR 0.9% 1000 ML INJ 1,000 ML IV ONE (19:15)
--- NOTE | 2017-02-27 19:38 | PD ---
Physical Exam Narrative General: The patient is a well-developed well-nourished female, slightly diaphoretic, with soft restraints in place on all extremities. Head and Neck exam: Head is normocephalic atraumatic. Eyes: Pupils are equal round and reactive to light. The patient is uncooperative with extraocular motion testing. She does open her eyes to voice. Nose: Midline septum with pink mucous membranes Mouth: Dentition unremarkable. Patient clenches her mouth shut when attempts are made to examine in her mouth. Neck: No palpable lymphadenopathy. No nuchal rigidity. No thyromegaly. Cardiovascular: Sinus tachycardia in the 1 teens, goes up to the 140s when she is awakened without murmurs, gallops, or rubs. No pulse deficit to the extremities and simultaneous auscultation and palpation of her radial artery. Lungs: Clear to auscultation bilaterally. No wheezes, rhonchi, or rales. Abdomen: Soft, without tenderness to palpation in all 4 quadrants of the abdomen. No guarding, rebound, or rigidity. Normal bowel sounds are audible. No tenderness on palpation of McBurney's point. Extremities: No clubbing, cyanosis, or edema. 2+ pulses in all 4 extremities. Neurologic Exam: The patient is uncooperative with formal neurologic testing. According to the patient's nurse she did speak and a purposeful way to him briefly. She reportedly stated "let go of my arm". During my evaluation the patient is nonverbal. The patient does open her eyes and move all extremities, thrashing about. No facial asymmetry. Skin Exam: No rash noted. Intact skin that is warm and slightly diaphoretic. Data Data Last Documented VS Vital Signs Date Time Temp Pulse Resp B/P Pulse Ox O2 Delivery O2 Flow Rate FiO2 02/27/17 17:16 100 19 124/67 94 Room Air 02/27/17 15:37 97.2 Orders Haloperidol Inj (Haldol Inj) (02/27/17 15:30) Lorazepam Inj (Ativan Inj) (02/27/17 15:30) Haloperidol Inj (Haldol Inj) (02/27/17 15:27) Lorazepam Inj (Ativan Inj) (02/27/17 15:27) Complete Blood Count With Diff (02/27/17 15:29) Comprehensive Metabolic Panel (02/27/17 15:29) Psych Screen (02/27/17 15:29) Drug Screen, Random Urine (02/27/17 15:29) Alcohol (Ethanol) (02/27/17 15:29) Electrocardiogram (02/27/17 15:49) Lorazepam Inj (Ativan Inj) (02/27/17 17:00) Restraints Non-Violent MARTHA.Q3H (02/27/17 17:31) Lorazepam Inj (Ativan Inj) (02/27/17 19:00) Sodium Chlor 0.9% 1000 Ml Inj (Ns 1000 M (02/27/17 19:15) Lorazepam Inj (Ativan Inj) (02/27/17 19:30) Urinalysis - C+S If Indicated (02/27/17 20:52) Creatine Kinase (Cpk) (02/27/17 20:52) Ckmb (Isoenzyme) Profile (02/27/17 20:52) Troponin I (02/27/17 20:52) Lorazepam Inj (Ativan Inj) (02/27/17 21:00) Admit Order (Ed Use Only) (02/27/17 21:07) Labs Laboratory Tests Test 02/27/17 02/27/17 15:50 16:04 White Blood Count 11.8 TH/MM3 Red Blood Count 5.48 MIL/MM3 Hemoglobin 13.5 GM/DL Hematocrit 41.9 % Mean Corpuscular Volume 76.6 FL Mean Corpuscular Hemoglobin 24.7 PG Mean Corpuscular Hemoglobin 32.3 % Concent Red Cell Distribution Width 15.6 % Platelet Count 317 TH/MM3 Mean Platelet Volume 8.9 FL Neutrophils (%) (Auto) 77.7 % Lymphocytes (%) (Auto) 15.6 % Monocytes (%) (Auto) 5.8 % Eosinophils (%) (Auto) 0.3 % Basophils (%) (Auto) 0.6 % Neutrophils # (Auto) 9.2 TH/MM3 Lymphocytes # (Auto) 1.8 TH/MM3 Monocytes # (Auto) 0.7 TH/MM3 Eosinophils # (Auto) 0.0 TH/MM3 Basophils # (Auto) 0.1 TH/MM3 CBC Comment DIFF FINAL Differential Comment Sodium Level 144 MEQ/L Potassium Level 3.4 MEQ/L Chloride Level 112 MEQ/L Carbon Dioxide Level 21.5 MEQ/L Anion Gap 11 MEQ/L Blood Urea Nitrogen 19 MG/DL Creatinine 0.92 MG/DL Estimat Glomerular Filtration 66 ML/MIN Rate Random Glucose 124 MG/DL Calcium Level 8.8 MG/DL Total Bilirubin 0.5 MG/DL Aspartate Amino Transf 12 U/L (AST/SGOT) Alanine Aminotransferase 15 U/L (ALT/SGPT) Alkaline Phosphatase 97 U/L Total Protein 8.1 GM/DL Albumin 3.4 GM/DL Ethyl Alcohol Level LESS THAN 3 MG/DL Urine Opiates Screen NEG Urine Barbiturates Screen NEG Urine Amphetamines Screen POS Urine Benzodiazepines Screen POS Urine Cocaine Screen NEG Urine Cannabinoids Screen NEG MDM Medical Record Reviewed: Yes Supervised Visit with FABIENNE: No Narrative Course During the course of the patients emergency department visit, the patients history, examination, and differential diagnosis were reviewed with the patient. The patient had IV access obtained and blood work sent for analysis. The patient was placed on a personnel monitor with oximetry and blood pressure monitoring. The patient was initially evaluated by Dr. Miller. The patient's case was checked out to me at the conclusion of his shift. The patient arrived agitated under a [place] act. Laboratory studies were ordered. The patient on reevaluation by me continues to be agitated requiring restraints. The patient infiltrated her left upper extremity IV during movements in spite of having soft restraints in place. The patient was initially provided by Dr. Miller Haldol 5 mg IM, and a total of 7 mg of Ativan prior to my arrival to assume care of the patient. On reevaluation , the patient needs to be agitated. Another 2 mg of Ativan was provided. The patients laboratory studies were reviewed and remarkable for white count 11.8, hemoglobin 13.5, platelets 317 with neutrophils 77.7, CMP is remarkable for potassium of 3.4, chloride 112, BUN 19, glucose 124, AST 12, urine drug screen is positive for amphetamines, benzodiazepine, level less than 3. The patient will be admitted to the medical service for continued agitation. The patient will have that are at the bedside. The patients results were discussed with the patient, including the plan of care. I explained that further testing and/ or monitoring is indicated based on the patients history, examination, and/ or laboratory findings. Therefore, I recommended admission for additional evaluation. The patient expressed understanding and was agreeable with this plan. The patient was admitted to the hospital in guarded condition and sent to a bed under the care of the [facility] service. Physician Communication Physician Communication The patient's case was discussed with Dr. Sharp who did agree to admit the patient for further evaluation and treatment at this time. Diagnosis Primary Impression: Substance induced mood disorder Additional Impressions: Altered mental status Qualified Code: R41.0 - Disorientation Agitation Admitting Information Admitting Physician Requests: Observation Noemi Mata MD Feb 27, 2017 19:38
[2017-02-27] MEDS ORDERED: ZIPRASIDONE MESYLATE 20 MG VIAL IM ONE ×2 (21:15→22:30)
[2017-02-27] MEDS ORDERED: SENNOSIDES 8.6 MG TAB PO PRN (21:15)
[2017-02-27] MEDS ORDERED: SODIUM CHLORIDE 0.9% FLUSH 10 ML FLUSH IV FLUSH PRN (21:15)
[2017-02-27] MEDS ORDERED: MAGNESIUM HYDROXIDE SUSP 30 ML CUP PO PRN (21:15)
[2017-02-27] MEDS ORDERED: LACTULOSE SYRUP 20 GM/30 ML CUP PO PRN (21:15)
[2017-02-27] MEDS ORDERED: ACETAMINOPHEN 325 MG TAB PO PRN (21:15)
[2017-02-27] MEDS ORDERED: BISACODYL 10 MG SUPP RECTAL PRN (21:15)
--- NOTE | 2017-02-27 21:18 | HHI.HP ---
[facility] Service [facility] Primary Care Physician Александр Palacio Admission Diagnosis Agitation, San[place] act, AMS Diagnoses: (1) Encephalopathy Diagnosis: Principal (2) Drug ingestion Diagnosis: Principal (3) Suicide attempt Diagnosis: Principal (4) Leukocytosis Diagnosis: Principal Travel History International Travel<30 Days: No Contact w/Intl Traveler <30 Da: No Traveled to Known Affected Are: No History of Present Illness This 46-year-old female with PMH of Anxiety and Polysubstance Abuse was brought to the ER by Police under [place] Act secondary to Suicide Attempt/Delirium. Per report, pt used unknown drug today and was noted to be acting strange at which time EMS called. Upon their arrival, pt attempted to cut her left wrist w/ knife, arrived under [place] Act. Unable to obtain any history from patient due to significant agitation. S/p multiple doses of Haldol and Ativan in ER w/ minimal sedation, currently in restraints. BP 151/83, HR 105, O2 sat 95% on RA , Afebrile. WBC 11.8. Chemistry essentially unremarkable except for GFR 66. K + 3.4. Urine Drug Screen positive for Amphetamine and Benzo. Alcohol negative. Pt unable to be medically cleared due to persistent agitation. Review of Systems ROS: Unable to obtain secondary to significant agitation and AMS. Past Family Social History Past Medical History PMH: Anxiety and Polysubstance Abuse Past Surgical History PAST SURGICAL HISTORY: Gastric Bypass, Cholecystectomy, Hysterectomy Allergies: Coded Allergies: Lortab (Verified Allergy, Severe, CANNOT BREATH, 02/27/17) Overton (Verified Allergy, Severe, Swelling, 02/27/17) Family History PAST FAMILY HISTORY: Reviewed. No h/o DM or CAD Social History PAST SOCIAL HISTORY: Reportedly negative for alcohol. Smokes 1ppd. +Drug Abuse. Physical Exam Vital Signs Vital Signs Date Time Temp Pulse Resp B/P Pulse Ox O2 Delivery O2 Flow Rate FiO2 02/27/17 17:16 100 19 124/67 94 Room Air 02/27/17 15:37 97.2 105 151/83 95 Room Air Physical Exam PE: GENERAL: Middle-aged white female, significant agitation, in four point restraints. HEENT: PERRLA, EOMI. No scleral icterus or conjunctival pallor. No lid lag or facial droop. CARDIOVASCULAR: Regular rate and rhythm. No obvious murmurs to auscultation. No chest tenderness to palpation. RESPIRATORY: No obvious rhonchi or wheezing. Clear to auscultation. Breath sounds equal bilaterally. GASTROINTESTINAL: Abdomen soft, non-tender, nondistended. BS normal. MUSCULOSKELETAL: Extremities without clubbing, cyanosis, or edema. No obvious deformities. NEUROLOGICAL: Agitated, in restraints. No focal neurologic deficits. Moving both upper and lower extremities spontaneously. Laboratory Laboratory Tests Test 02/27/17 02/27/17 15:50 16:04 White Blood Count 11.8 Red Blood Count 5.48 Hemoglobin 13.5 Hematocrit 41.9 Mean Corpuscular Volume 76.6 Mean Corpuscular Hemoglobin 24.7 Mean Corpuscular Hemoglobin 32.3 Concent Red Cell Distribution Width 15.6 Platelet Count 317 Mean Platelet Volume 8.9 Neutrophils (%) (Auto) 77.7 Lymphocytes (%) (Auto) 15.6 Monocytes (%) (Auto) 5.8 Eosinophils (%) (Auto) 0.3 Basophils (%) (Auto) 0.6 Neutrophils # (Auto) 9.2 Lymphocytes # (Auto) 1.8 Monocytes # (Auto) 0.7 Eosinophils # (Auto) 0.0 Basophils # (Auto) 0.1 CBC Comment DIFF FINAL Differential Comment Sodium Level 144 Potassium Level 3.4 Chloride Level 112 Carbon Dioxide Level 21.5 Anion Gap 11 Blood Urea Nitrogen 19 Creatinine 0.92 Estimat Glomerular Filtration 66 Rate Random Glucose 124 Calcium Level 8.8 Total Bilirubin 0.5 Aspartate Amino Transf 12 (AST/SGOT) Alanine Aminotransferase 15 (ALT/SGPT) Alkaline Phosphatase 97 Total Protein 8.1 Albumin 3.4 Ethyl Alcohol Level LESS THAN 3 Urine Opiates Screen NEG Urine Barbiturates Screen NEG Urine Amphetamines Screen POS Urine Benzodiazepines Screen POS Urine Cocaine Screen NEG Urine Cannabinoids Screen NEG Result Diagram: 02/27/17 1550 02/27/17 1550 Assessment and Plan Problem List: (1) Encephalopathy ICD Code: G93.40 Status: Acute (2) Drug ingestion ICD Code: T50.901A Status: Acute (3) Suicide attempt ICD Code: T14.91 Status: Acute (4) Leukocytosis ICD Code: D72.829 Status: Acute Assessment and Plan A/P: 1. Encephalopathy: likely secondary to drug ingestion, Urine Drug Screen + Amphetamines and Benzo. Labs essentially unremarkable. S/p multiple doses of Haldol and Ativan in ER w/ minimal sedation. Will give Geodon, caution w/ over- sedation. Neuro Checks 2. Drug Ingestion: unknown substance, reported to have been using drugs today , Urine Drug Screen positive as above. 3. Suicide Attempt: attempted to cut left wrist w/ knife per EMS, currently under [place] Act. Sitter. Consult Psych. 4. Leukocytosis: WBC 11.8, likely secondary to acute drug ingestion, no obvious infection. Check U/a. Repeat labs in am. 5. DVT Prophylaxis: SCD/Teds. 6. Social work for d/c planning as needed. 7. Case discussed w/ ER physician at length Cristina Sharp MD Feb 27, 2017 21:18
[2017-02-27 22:00] VITALS: BP 128/69; PULSE 92; RESP 18; O2SAT 97
[2017-02-27] MEDS ORDERED: ONDANSETRON HCL 4 MG/2 ML VIAL IVP PRN (22:00)
[2017-02-27] MEDS: SODIUM CHLOR 0.9% 1000 ML INJ 1,000 ML IV SCH (23:55)
[2017-02-28] VITALS (9 sets, daily range): BP systolic 135–154; BP diastolic 68–98; PULSE 65–92; RESP 18–21; TEMP 97.9–99; O2SAT 97–99
[2017-02-28 00:37] LABS: CKMB 5.7 NG/ML (0.5-3.6)
[2017-02-28] MEDS ORDERED: ZIPRASIDONE MESYLATE 20 MG VIAL IM PRN (02:45)
[2017-02-28 05:48] LABS: AUTOMATED NEUTROPHIL # 6.8 TH/MM3 (1.8-7.7); BASOPHIL # 0.1 TH/MM3 (0-0.2); BASOPHIL % 0.5 % (0.0-2.0); EOSINOPHIL % 0.4 % (0.0-4.0); HEMATOCRIT 39.8 % (35.0-46.0); HEMO FLAGS DIFF FINAL; LYMPH % 24.9 % (9.0-44.0); LYMPHOCYTE # 2.5 TH/MM3 (1.0-4.8); MEAN CELL VOLUME 76.9 FL (80.0-100.0); MEAN CORPUSCULAR HEMOGLOBIN 24.7 PG (27.0-34.0); MEAN CORPUSCULAR HGB CONC 32.1 % (32.0-36.0); MONO % 7.4 % (0.0-8.0); NEUT % 66.8 % (16.0-70.0); PLATELET COUNT 289 TH/MM3 (150-450); RED BLOOD COUNT 5.18 MIL/MM3 (4.00-5.30); RED CELL DISTRIBUTION WIDTH 15.9 % (11.6-17.2); WHITE BLOOD COUNT 10.2 TH/MM3 (4.0-11.0)
[2017-02-28] MEDS: SODIUM CHLOR 0.9% 1000 ML INJ 1,000 ML IV SCH (06:21)
[2017-02-28 06:24] LABS: ALKALINE PHOSPHATASE 89 U/L (45-117); ALT (GPT) 17 U/L (10-53); ANION GAP 7 MEQ/L (5-15); AST (GOT) 28 U/L (15-37); BICARBONATE 24.8 MEQ/L (21.0-32.0); BLOOD UREA NITROGEN 18 MG/DL (7-18); CHLORIDE 111 MEQ/L (98-107); CREATINE KINASE 1076 U/L (26-192); GLOMERULAR FILTRATION RATE 124 ML/MIN (>89); POTASSIUM 3.2 MEQ/L (3.5-5.1); SODIUM (NA) 143 MEQ/L (136-145); TOTAL BILIRUBIN ADULT 0.5 MG/DL (0.2-1.0)
[2017-02-28 06:43] LABS: CKMB 7.7 NG/ML (0.5-3.6)
[2017-02-28] MEDS ORDERED: POTASSIUM CHLORIDE 20 MEQ CONTROLLED RELEASE TAB PO ONE (08:00)
[2017-02-28] MEDS: NS + KCL 20 MEQ INJ 1,000 ML IV SCH ×2 (08:10→16:11)
[2017-02-28] MEDS: SODIUM CHLORIDE 0.9% FLUSH 10 ML FLUSH IV FLUSH SCH ×2 (08:10→20:37)
[2017-02-28] MEDS: DOCUSATE SODIUM 50 MG/SENNA 8.6 MG TAB PO SCH ×2 (08:10→20:37)
--- NOTE | 2017-02-28 09:05 | HHI.PR ---
Subjective Remarks Follow-up for reported suicide attempt, possible overdose, and agitation. Sitter at bedside reports patient has been somnolent all night and this morning. The patient tries to open her eyes to voice, but falls back to sleep. She does nod "yes" when asked if she can be examined. Patient is unable to stay awake long enough to answer any questions or provide any history. Objective Vitals Vital Signs Date Time Temp Pulse Resp B/P Pulse Ox O2 Delivery O2 Flow Rate FiO2 02/28/17 07: 99.0 86 18 152/93 98 02/28/17 02:52 97.9 92 18 154/89 97 02/27/17 22:00 92 18 128/69 97 Room Air 02/27/17 19:00 99 18 132/71 94 Room Air 02/27/17 17:16 100 19 124/67 94 Room Air 02/27/17 15:37 97.2 105 151/83 95 Room Air I/O 02/27/17 02/27/17 02/27/17 02/28/17 02/28/17 02/28/17 07:00 15:00 23:00 07:00 15:00 23:00 Intake Total 390 ml Balance 390 ml Intake Oral 240 ml IV Total 150 ml # Voids 1 Result Diagram: 02/28/17 0502 02/28/17 0502 Objective Remarks GENERAL: Well-developed well-nourished. In no acute distress. Sedated in 4 point restraints. SKIN: Warm and dry. Ecchymosis bilateral forearms. No definite wrist lacerations seen. HEENT: Normocephalic. Pupils equal and round. Mucous membranes pink and moist. CARDIOVASCULAR: Regular rate and rhythm. No murmur appreciated. RESPIRATORY: No accessory muscle use. Clear to auscultation. Breath sounds equal bilaterally. GASTROINTESTINAL: Abdomen soft, non-tender, nondistended. Bowel sounds x4. MUSCULOSKELETAL: No obvious deformities. No clubbing or cyanosis. No edema. NEUROLOGICAL: Sedated/somnolence. Awakens to voice. And does nod yes appropriately. A/P Problem List: (1) Encephalopathy ICD Code: G93.40 Status: Acute (2) Drug ingestion ICD Code: T50.901A Status: Acute (3) Suicide attempt ICD Code: T14.91 Status: Acute (4) Leukocytosis ICD Code: D72.829 Status: Resolved Assessment and Plan 46-year-old female with PMH of Anxiety and Polysubstance Abuse who was brought to the ER by Police under [place] Act secondary to Suicide Attempt/Delirium Encephalopathy: Suspected secondary to unknown substance prior to admission. Presented with agitation and received numerous sedating medications overnight, currently sedated. UDS was positive for Amphetamines and Benzo; confirmed on [employer] the patient is prescribed opiates, benzos, and amphetamine medications. EKG with nonspecific ST changes, normal QTC. IM Geodon as needed if further agitation, caution w/ over-sedation. Neuro Checks Suicide Attempt: attempted to cut left wrist w/ knife per Sanford Act report. Sitter. Consulted Psych. Leukocytosis: WBC 11.8, secondary to UTI vs agitation. WBCs now within normal limits. Afebrile. UA with evidence of infection as below. Chest x-ray clear. Monitor. Rhabdomyolysis: CPK trending up to 1076. Possibly due to agitation vs toxic ingestion. Trending CPK. Aggressive IVF. Troponin elevation: Troponin 0.06, 0.09, third set pending. Initial EKG with no definite ischemic changes. Repeat EKG. Monitor on telemetry. UTI: Urine with evidence of UTI. Empiric IV Rocephin and follow-up urine culture. Hypokalemia: Given potassium orally and add potassium to IV. Monitor. DVT Prophylaxis: SCD/Teds. Discharge Planning Discussed with psychiatry, likely inpatient psychiatry once medically cleared. Isaías Mora Feb 28, 2017 09:05
[2017-02-28 09:24] LABS: BACTERIA, URINE OCC /hpf; BLOOD, URINE MOD (NEG); CALCIUM OXALATE CRYSTALS,URINE RARE /hpf; COMMENT (UR) CATH-CULTURE IND; CULTURE IF INDICATED CATH CULTURE IND; GLUCOSE,URINE NEG (NEG); HYALINE CAST, URINE 30 /lpf (RARE); KETONE, URINE NEG (NEG); MUCUS URINE MANY /lpf (OCC); NITRITE,URINE POS (NEG); PH, URINE 5.5 (5.0-8.5); SQUAMOUS EPITHELIAL CELL URINE <1 /hpf (0-5); URINE COLOR YELLOW (YELLW/STRAW)
--- NOTE | 2017-02-28 09:44 | RADRPT ---
EXAM DATE/TIME: 02/28/2017 09:21 [facility] COMPARISON: CHEST SINGLE AP, July 25, 2016, 21:28. INDICATIONS : Fever. MEDICAL HISTORY : None. SURGICAL HISTORY : Hysterectomy. Cholecystectomy. Gastric bypass ENCOUNTER: Initial ACUITY: 1 day PAIN SCORE: 0/10 LOCATION: Left chest FINDINGS: A single view of the chest demonstrates the lungs to be symmetrically aerated without evidence of mas s, infiltrate or effusion. The cardiomediastinal contours are unremarkable. Osseous structures are intact. CONCLUSION: No acute disease. Rodo Ferrell MD on February 28, 2017 at 9:41 Board Certified Radiologist. This report was verified electronically.
[2017-02-28] MEDS: cefTRIAXone INJ 1,000 MG in SODIUM CHLORIDE 0.9% INJ 100 ML IV SCH (10:20)
--- NOTE | 2017-02-28 12:53 | PD.PSY.CON ---
Provisional Diagnosis Admission Date Feb 27, 2017 at 21:08 [place] I. Adjustment disorder with depressed mood, R/O substance-induced mood disorder, R/ O MDD with psychotic features, amphetamines and cannabis use disorder [place] II. Deferred History of Present Illness Service Psychiatry Consult Requested By Reason for Consult Suicidal ideation Primary Care Physician Александр Palacio The patient is a 46-year-old woman, with reported psychiatric history of Anxiety, polysubstance use disorder, was brought to the ER by Police under [place] Act secondary to Suicide Attempt/Delirium. Per report, pt used unknown drug today and was noted to be acting strange at which time EMS called. Upon their arrival, pt attempted to cut her left wrist w/ knife, arrived under [place] Act. Unable to obtain any history from patient due to significant agitation. S /p multiple doses of Haldol and Ativan in ER w/ minimal sedation, currently in restraints. BP 151/83, HR 105, O2 sat 95% on RA, Afebrile. WBC 11.8. Chemistry essentially unremarkable except for GFR 66. K+ 3.4. Urine Drug Screen positive for Amphetamine and Benzo. BAL is neg. EKG with nonspecific ST changes, normal QTC. IM Geodon as needed if further agitation, caution w/ over- sedation. Leukocytosis: WBC 11.8, secondary to UTI vs agitation. WBCs now within normal limits. Afebrile. UA with evidence of infection as below. Chest x-ray clear. Monitor. Rhabdomyolysis: CPK trending up to 1076. Possibly due to agitation vs toxic ingestion. Trending CPK. Aggressive IVF. UTI: Urine with evidence of UTI. Empiric IV Rocephin and follow-up urine culture. Hypokalemia: Given potassium orally and add potassium to IV. Monitor. On psychiatric evaluation patient is currently sedated, non-cooperative, unable to participate in a conversation and provide meaningful information for the psychiatric assessment at this moment. But, as per staff report, patient was extremely aggressive, agitated, disorganized stated multiple times that she wanted to kill herself and she would cut herself with a knife and wanted to . Review of Systems ROS Limitations: Unresponsive, Uncooperative Past Family Social History Coded Allergies: Lortab (Verified Allergy, Severe, CANNOT BREATH, 02/27/17) Grady (Verified Allergy, Severe, Swelling, 02/27/17) Reported Medications Phentermine (Lomaira)8 Mg Tab37.5 Mg PO DAILY #90 TAB Ref 0 02/27/17 Oxycodone-Acetaminophen (Percocet)10-325 mg Tab1 Tab PO Q6H PRN (PAIN) Ref 0 10/08/16 Lorazepam 1 Mg Tab1 Mg PO HS PRN (ANXIETY AND/OR INSOMNIA) Ref 0 10/08/16 Celecoxib (Celebrex)50 Mg [id number] Mg PO BID Ref 0 07/25/16 Chlorzoxazone (Lorzone)750 Mg Afx436 Mg PO TID Ref 0 06/07/16 Sertraline (Zoloft)50 Mg Tab50 Mg PO DAILY #30 TAB Ref 0 06/07/16 Morphine ER 24 HR 20 Mg Caper20 Mg PO BID Ref 0 06/07/16 Gabapentin 300 Mg Cgh768 Mg PO TID #60 CAP Ref 0 06/07/[address] (Nexium)20 Mg Capdr20 Mg PO BID Ref 0 06/07/16 Current Medications Medications (Trade) Dose Ordered Sig/Ngoc Route Start Time Stop Time Status Last Admin (NS Flush) 2 ml UNSCH PRN IV FLUSH 02/27/17 21:15 (NS Flush) 2 ml BID IV FLUSH 02/28/17 09:00 (Zofran Inj) 4 mg Q6H PRN IVP 02/27/17 22:00 (Tylenol) 650 mg Q6H PRN PO 02/27/17 21:15 (Roxana-Colace) 1 tab BID PO 02/28/17 09:00 02/28/17 08:10 (Milk Of Magnesia Liq) 30 ml Q12H PRN PO 02/27/17 21:15 (Senokot) 17.2 mg Q12H PRN PO 02/27/17 21:15 (Dulcolax Supp) 10 mg DAILY PRN RECTAL 02/27/17 21:15 (Lactulose Liq) 30 ml DAILY PRN PO 02/27/17 21:15 Ziprasidone 10 mg 10 mg Q12H PRN IM 02/28/17 02:45 Potassium Chloride/Sodium Chloride 1,000 ml @ 125 mls/hr Q8H IV 02/28/17 08:00 02/28/17 08:10 (Rocephin Inj/NS Inj) 100 ml @ 200 mls/hr Q24H IV 02/28/17 10:00 02/28/17 10:20 Physical Exam Vital Signs Vital Signs Date Time Temp Pulse Resp B/P Pulse Ox O2 Delivery O2 Flow Rate FiO2 02/28/17 11:03 98.7 74 20 137/88 99 02/27/17 22:00 Room Air Lab Results Laboratory Tests Test 02/27/17 02/27/17 15:50 16:04 White Blood Count 11.8 Red Blood Count 5.48 Hemoglobin 13.5 Hematocrit 41.9 Mean Corpuscular Volume 76.6 Mean Corpuscular Hemoglobin 24.7 Mean Corpuscular Hemoglobin 32.3 Concent Red Cell Distribution Width 15.6 Platelet Count 317 Mean Platelet Volume 8.9 Neutrophils (%) (Auto) 77.7 Lymphocytes (%) (Auto) 15.6 Monocytes (%) (Auto) 5.8 Eosinophils (%) (Auto) 0.3 Basophils (%) (Auto) 0.6 Neutrophils # (Auto) 9.2 Lymphocytes # (Auto) 1.8 Monocytes # (Auto) 0.7 Eosinophils # (Auto) 0.0 Basophils # (Auto) 0.1 CBC Comment DIFF FINAL Differential Comment Sodium Level 144 Potassium Level 3.4 Chloride Level 112 Carbon Dioxide Level 21.5 Anion Gap 11 Blood Urea Nitrogen 19 Creatinine 0.92 Estimat Glomerular Filtration 66 Rate Random Glucose 124 Calcium Level 8.8 Total Bilirubin 0.5 Aspartate Amino Transf 12 (AST/SGOT) Alanine Aminotransferase 15 (ALT/SGPT) Alkaline Phosphatase 97 Total Protein 8.1 Albumin 3.4 Ethyl Alcohol Level LESS THAN 3 Urine Opiates Screen NEG Urine Barbiturates Screen NEG Urine Amphetamines Screen POS Urine Benzodiazepines Screen POS Urine Cocaine Screen NEG Urine Cannabinoids Screen NEG Result Diagram: 02/27/17 1550 02/27/17 1550 Mental Status Examination Limited due to level of sedation Appearance woman, disheveled, poor hygiene, [facility], non-cooperative at this moment Assessment & Plan Problem List: (1) Adjustment disorder with mixed disturbance of emotions and conduct Assessment & Plan: A psychiatric evaluation was limited due to the level of sedation of the patient. Patient was medicated with Geodon 10 mg IM in order to calm her down. But as per [place] act documentation and report from the ER staff, and also based in my conversation with primary ER team, patient has been very disorganized, agitated, verbally hostile and aggressive, and is stating multiple times that she wanted to and to cut herself with a knife. Patient definitely meets criteria for psychiatric admission for stabilization and safety. Continue olanzapine 10 mg IM every 8 hours when necessary aggressive behavior and agitations. [facility] protocol. Transfer to psychiatry once medically stable. ICD Code: F43.25 Assessment & Plan Estimated LOS: days Thomas Luke MD Feb 28, 2017 12:53
[2017-02-28] MEDS ORDERED: LORazepam 2 MG/ML VIAL IV PUSH PRN (16:30)
--- NOTE | 2017-02-28 16:30 | EKG ---
Date Performed: 02/28/2017 Time Performed: 10:45:25 PTAGE: 46 years EKG: Sinus rhythm MINIMAL VOLTAGE CRITERIA FOR LVH, CONSIDER NORMAL VARIANT BORDERLINE ECG PREVIOUS TRACING : 02/27/2017 15.49 Since previous tracing, no significant change noted DOCTOR: Devon Ji Interpretating Date/Time 02/28/2017 16:28:43
--- NOTE | 2017-02-28 16:30 | EKG ---
Date Performed: 02/27/2017 Time Performed: 15:49:43 PTAGE: 46 years EKG: Sinus rhythm MODERATE VOLTAGE CRITERIA FOR LVH, CONSIDER NORMAL VARIANT NONSPECIFIC T-WAVE ABNORMALITY BORDERLINE ECG NO PREVIOUS TRACING DOCTOR: Devon Ji Interpretating Date/Time 02/28/2017 16:28:31
[2017-02-28 16:38] LABS: MAGNESIUM 2.2 MG/DL (1.5-2.5)
[2017-02-28 16:53] LABS: CKMB 4.5 NG/ML (0.5-3.6)
[2017-03-01] MEDS: NS + KCL 20 MEQ INJ 1,000 ML IV SCH ×2 (00:36→07:49)
[2017-03-01 03:08] VITALS: BP 122/85; PULSE 60; RESP 18; TEMP 98.5; O2SAT 97
[2017-03-01 07:41] VITALS: BP 109/62; PULSE 60; RESP 18; TEMP 97.8; O2SAT 98
[2017-03-01 08:14] LABS: BICARBONATE 25.9 MEQ/L (21.0-32.0); POTASSIUM 3.8 MEQ/L (3.5-5.1)
[2017-03-01 08:30] LABS: CKMB 1.9 NG/ML (0.5-3.6)
[2017-03-01] MEDS: SODIUM CHLORIDE 0.9% FLUSH 10 ML FLUSH IV FLUSH SCH (08:35)
[2017-03-01] MEDS: DOCUSATE SODIUM 50 MG/SENNA 8.6 MG TAB PO SCH (08:35)
[2017-03-01] MEDS ORDERED: MACR100C2 PO (10:55)
[2017-03-01] MEDS: cefTRIAXone INJ 1,000 MG in SODIUM CHLORIDE 0.9% INJ 100 ML IV SCH (10:57)
[2017-03-01] MEDS ORDERED: oxyCODONE/ACETAMINOPHEN 10 MG/325 MG TAB PO PRN (11:00)
--- NOTE | 2017-03-01 11:01 | HHI.PR ---
Subjective Remarks Follow-up for suicidal overdose. The patient is more awake and alert today. She states she's been able to ambulate. Has been tolerating oral intake. She states that she doesn't recall a lot of the events leading up to and during the admission. She does state that she drank alcohol, took methamphetamine, and took an excessive amount of Zoloft prior to admission. She states that she did this because she was tired, angry, frustrated, and wanted "it to be over". She does admit that this was an intent to harm herself, and this is her first episode. She continues to report these feelings of depression, but states they have improved some. She states that she was previously on pain management, but was let go from that clinic about 6 weeks ago due to missing appointments for spinal injections. She has been out of and off her opiates, benzos, gabapentin for the past several weeks. Objective Vitals Vital Signs Date Time Temp Pulse Resp B/P Pulse Ox O2 Delivery O2 Flow Rate FiO2 03/01/17 07:41 97.8 60 18 109/62 98 03/01/17 03:08 98.5 60 18 122/85 97 02/28/17 23:33 98.6 76 18 135/68 98 02/28/17 20:59 70 02/28/17 19:34 98.4 73 18 138/89 99 02/28/17 16:45 98.6 65 21 154/98 99 02/28/17 16:19 77 02/28/17 13:52 67 02/28/17 11:03 98.7 74 20 137/88 99 I/O 02/28/17 02/28/17 02/28/17 03/01/17 03/01/17 03/01/17 06:59 14:59 22:59 06:59 14:59 22:59 Intake Total 1255 ml Balance 1255 ml Intake Oral 480 ml IV Total 775 ml # Voids 2 Result Diagram: 02/28/17 0502 03/01/17 0615 Imaging Last Impressions Chest X-Ray 02/28/17 0000 Signed Impressions: Service Date/Time: Tuesday, February 28, 2017 09:21 - CONCLUSION: No acute disease. Rodo Ferrell MD Objective Remarks GENERAL: Well-developed well-nourished. In no acute distress. More awake and alert today. SKIN: Warm and dry. Ecchymosis bilateral forearms. No definite wrist lacerations seen. HEENT: Normocephalic. Pupils equal and round. Mucous membranes pink and moist. CARDIOVASCULAR: Regular rate and rhythm. No murmur appreciated. RESPIRATORY: No accessory muscle use. Clear to auscultation. Breath sounds equal bilaterally. GASTROINTESTINAL: Abdomen soft, non-tender, nondistended. Bowel sounds x4. MUSCULOSKELETAL: No obvious deformities. No clubbing or cyanosis. No edema. NEUROLOGICAL: Awake and alert. Answers questions appropriately. Moves upper and lower extremities spontaneously. Normal speech. PSYCH: Depressed mood and affect; insight and judgment normal. Admits to SI. A/P Problem List: (1) Encephalopathy ICD Code: G93.40 Status: Acute (2) Drug ingestion ICD Code: T50.901A Status: Acute (3) Suicide attempt ICD Code: T14.91 Status: Acute (4) Leukocytosis ICD Code: D72.829 Status: Resolved Assessment and Plan 46-year-old female with PMH of Anxiety and Polysubstance Abuse who was brought to the ER by Police under [place] Act secondary to Suicide Attempt/Delirium Acute toxic and metabolic encephalopathy: Secondary to substance ingestion as well as medications for sedation. Improved. UDS was positive for Amphetamines and Benzo; patient reports she has been off previously prescribed prescribed opiates, benzos. EKG with nonspecific ST changes, normal QTC. IM Geodon as needed if further agitation, caution w/ over-sedation. Neuro Checks. Suicide Attempt: attempted to cut left wrist w/ knife per [place] Act report. Patient does admit to intentional overdose of methamphetamine and Zoloft. Sitter. Consulted Psych, recommends inpatient psychiatry. Leukocytosis: WBC 11.8, secondary to UTI vs agitation. WBCs now within normal limits. Afebrile. UA with evidence of infection as below. Chest x-ray clear. Monitor. Resolved. Rhabdomyolysis: CPK trended up to 1076, and then continues to trend down overnight to 468. Likely secondary to agitation and/or toxic ingestion. S/P aggressive IVF. Improved. Troponin elevation: Troponin 0.06, 0.09, 0.06, 0.03. EKGs with no definite ischemic changes. Likely secondary to agitation and/or amphetamine. Monitor on telemetry. UTI: Urine with evidence of UTI. Given empiric IV Rocephin. Urine culture still pending. Continue course of Macrobid and follow up final culture. Hypokalemia: Given potassium orally and IV supplement. Potassium now within normal limits. Magnesium within normal limits as well. Resolved. DVT Prophylaxis: SCD/Teds. Discharge Planning The patient is medically clear for discharge to inpatient psychiatry. Isaías Mora Mar 01, 2017 11:01
[2017-03-01 11:38] VITALS: BP 125/86; PULSE 64; RESP 16; TEMP 98.3; O2SAT 96
[2017-03-01] MEDS ORDERED: GABAPENTIN 300 MG CAP PO SCH (13:00)
[2017-03-01] MEDS ORDERED: CELECOXIB PO SCH (21:00)
[2017-03-01] MEDS ORDERED: PANTOPRAZOLE SOD 20 MG DELAYED RELEASE TAB PO SCH (21:00)
== END 2017-03-01 13:32 ==
LOC: NEPC 15:15 → NEDA 21:08 → NEPGCP 02-28 02:28 → NEPFCDU 02-28 23:46
PROVIDERS: ADMIT Hospitalist; ATTEND Hospitalist
DX: G92 Toxic encephalopathy (principal); D72.829 Elevated white blood cell count, unspecified; S61.512A Laceration without foreign body of left wrist, initial encounter; D64.9 Anemia, unspecified; F41.9 Anxiety disorder, unspecified; K21.9 Gastro-esophageal reflux disease without esophagitis; F17.210 Nicotine dependence, cigarettes, uncomplicated; Z79.899 Other long term (current) drug therapy; F32.9 Major depressive disorder, single episode, unspecified; F15.920 Other stimulant use, unspecified with intoxication, uncomplicated; Z78.1 Physical restraint status; R00.0 Tachycardia, unspecified; R45.1 Restlessness and agitation; R41.0 Disorientation, unspecified; T43.222A Poisoning by selective serotonin reuptake inhibitors, intentional self-harm, initial encounter; F19.10 Other psychoactive substance abuse, uncomplicated; X78.9XXA Intentional self-harm by unspecified sharp object, initial encounter; B96.20 Unspecified Escherichia coli [E. coli] as the cause of diseases classified elsewhere
CPT/HCPCS: 71010; 80048; 80053; 80307; 81001; 82550; 82552; 83735; 84484; 85025; 87077; 87086; 87186; 93005; 96361; 96365; 96366; 96372; 99285; G0378; J0696; J1630; J2060; J3480; J3486; J7030

== ENCOUNTER 2017-03-01 13:50 | Inpatient (IN) | payer OTHER ==
[~2017-03-01] VITALS: Ht 162.6 cm; Wt 67.7 kg
[~2017-03-01 13:50] MED LIST changes: +MACR100C2 PO; +PHEN-556 PO
[2017-03-01] MEDS ORDERED: LORazepam 2 MG/ML VIAL IM PRN ×2 (14:15)
[2017-03-01] MEDS ORDERED: LORazepam 1 MG TAB PO PRN (14:15)
[2017-03-01] MEDS ORDERED: ALUMINUM/MAGNESIUM/SIMETH 30 ML CUP PO PRN (14:15)
[2017-03-01] MEDS ORDERED: LORazepam 0.5 MG TAB PO PRN (14:15)
[2017-03-01] MEDS ORDERED: MAGNESIUM HYDROXIDE SUSP 30 ML CUP PO PRN (14:15)
[2017-03-01] MEDS: NICOTINE 21 MG/24 HR PATCH T-DERMAL SCH (15:00)
[2017-03-01 17:16] VITALS: BP 125/80; PULSE 85; RESP 17; TEMP 97.8; O2SAT 98
[2017-03-01] MEDS: GABAPENTIN 300 MG CAP PO SCH (18:00)
[2017-03-01 18:19] VITALS: BP 125/80; PULSE 101; RESP 18; TEMP 98; O2SAT 97
[2017-03-01] MEDS: REMOVE OLD NICODERM (NICOTINE) PATCH T-DERMAL SCH (21:00)
[2017-03-02 05:54] VITALS: BP 114/79; PULSE 77; RESP 18; TEMP 97.9; O2SAT 100
[2017-03-02 09:00] LABS: ANION GAP 5 MEQ/L (5-15); BICARBONATE 28.9 MEQ/L (21.0-32.0); BLOOD UREA NITROGEN 16 MG/DL (7-18); CHLORIDE 105 MEQ/L (98-107); GLOMERULAR FILTRATION RATE 95 ML/MIN (>89); POTASSIUM 3.7 MEQ/L (3.5-5.1); SODIUM (NA) 139 MEQ/L (136-145)
[2017-03-02] MEDS: NICOTINE 21 MG/24 HR PATCH T-DERMAL SCH (09:00)
[2017-03-02 09:03] LABS: HDL CHOLESTEROL 34.1 MG/DL (40.0-60.0); LDL CHOLESTEROL 78 MG/DL (0-99)
[2017-03-02] MEDS: GABAPENTIN 300 MG CAP PO SCH ×4 (09:26→20:21)
[2017-03-02] MEDS: DULoxetine HCl DR 30 MG CAP PO SCH (10:00)
[2017-03-02] MEDS ORDERED: hydrOXYzine HCL 50 MG TAB PO PRN (10:00)
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
[2017-03-02 11:46] VITALS: BP 134/72; PULSE 96; RESP 14; TEMP 98.7; O2SAT 98
[2017-03-02] MEDS ORDERED: traMADol HCL 50 MG TAB PO ONE (12:15)
[2017-03-02] MEDS ORDERED: oxyCODONE/ACETAMINOPHEN 5 MG/325 MG TAB PO ONE (12:15)
[2017-03-02 12:45] VITALS: BP 132/78; PULSE 60; RESP 16; TEMP 98.9; O2SAT 99
--- NOTE | 2017-03-02 13:20 | RADRPT ---
EXAM DATE/TIME: 03/02/2017 12:52 [place] COMPARISON: No previous studies available for comparison. INDICATIONS : Trauma to head today RADIATION DOSE: 30.69 CTDIvol (mGy) MEDICAL HISTORY : Arthritis. Anemia SURGICAL HISTORY : Hysterectomy. ENCOUNTER: Initial ACUITY: 1 day PAIN SCALE: 4/10 LOCATION: cranial TECHNIQUE: Multiple contiguous axial images were obtained of the head. Using automated exposure control and adj ustment of the mA and/or kV according to patient size, radiation dose was kept as low as reasonably a chievable to obtain optimal diagnostic quality images. DICOM format image data is available electro nically for review and comparison. FINDINGS: CEREBRUM: The ventricles are normal for age. No evidence of midline shift, mass lesion, hemorrhage or acute in farction. No extra-axial fluid collections are seen. POSTERIOR FOSSA: The cerebellum and brainstem are intact. The 4th ventricle is midline. The cerebellopontine angle i s unremarkable. EXTRACRANIAL: The visualized portion of the orbits is intact. SKULL: The calvaria is intact. No evidence of skull fracture. CONCLUSION: Normal examination. Rodo Ferrell MD on March 02, 2017 at 13:17 Board Certified Radiologist. This report was verified electronically.
[2017-03-02] MEDS ORDERED: IBUPROFEN 800 MG TAB PO ONE (14:00)
[2017-03-02 16:12] VITALS: BP 102/68; PULSE 60; RESP 16; TEMP 97.6; O2SAT 98
[2017-03-02 16:14] LABS: HEMOGLOBIN A1a 1.3 %; HEMOGLOBIN A1b 1.6 %; HEMOGLOBIN Ao 85.1 %; HEMOGLOBIN LA1C 1.9 %; HEMOGLOBIN P3 3.9 %
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
[2017-03-02] MEDS: NITROFURANTOIN MONOHYD MACROCR 100 MG CAP PO SCH (18:00)
[2017-03-02 20:15] VITALS: BP 132/84; PULSE 86; RESP 18; TEMP 98.2; O2SAT 98
[2017-03-02] MEDS: REMOVE OLD NICODERM (NICOTINE) PATCH T-DERMAL SCH (20:42)
[2017-03-02] MEDS: ACETAMINOPHEN 325 MG TAB PO PRN (21:03)
[2017-03-02 23:38] LABS: TRANSFERRIN IRON PROFILE 221 MG/DL (200-360)
[2017-03-02 23:40] LABS: FERRITIN 43 NG/ML (8-252)
[2017-03-03 05:32] VITALS: BP 129/80; PULSE 60; RESP 16; TEMP 97.4; O2SAT 97
[2017-03-03] MEDS: FERROUS SULFATE 325 MG (65 MG ELEMENTAL IRON) TAB PO SCH (08:28)
[2017-03-03] MEDS: DULoxetine HCl DR 30 MG CAP PO SCH (08:28)
[2017-03-03] MEDS: NITROFURANTOIN MONOHYD MACROCR 100 MG CAP PO SCH ×2 (08:29→17:36)
[2017-03-03] MEDS: GABAPENTIN 300 MG CAP PO SCH ×4 (08:29→19:57)
[2017-03-03] MEDS: NICOTINE 21 MG/24 HR PATCH T-DERMAL SCH (08:32)
--- NOTE | 2017-03-03 11:14 | HHI.PYPN ---
Subjective Remarks Patient seen and examined with counselor. Chart reviewed. Case discussed with nursing staff. No behavioral issues noted overnight. On my exam today, patient denies ongoing SI. "I have that sadness under control." She notes that she had previously been working with a counselor, but "she betrayed my trust." She is open to working with a different psychotherapist in the future. Denies side effects from medications. Does complain of some chest wall tenderness r/t fall yesterday. No other physical complaints. Review of Systems Except as stated in HPI: all other systems reviewed are Neg Objective Alert: Yes [place]: Person, Place, Date Mood: Calm Affect: Appropriate Memory Intact: Comment (intact on clinical exam) Hallucinations: Other (No AVH) Delusions: No Delusion Type: Other (none elicited) Suicidal: Ideation (denies SI) Homicidal: Ideation (no HI) Insight/Judgment Poor Remarks No motor abnormalities noted. Thought process linear. Grooming and hygiene good. Labs Labs reviewed. Vitals/IOs Vital Signs Date Time Temp Pulse Resp B/P Pulse Ox O2 Delivery O2 Flow Rate FiO2 03/03/17 05:32 97.4 60 16 129/80 97 Assessment & Plan Problem List: (1) Adjustment disorder with mixed disturbance of emotions and conduct ICD Code: F43.25 (2) Amphetamine abuse ICD Code: F15.10 Assessment & Plan Continue Cymbalta and gabapentin as ordered. Check CXR for c/o chest wall pain ; this does not appear to be interfering with breathing or otherwise causing acute distress. Hospitalist input appreciated. Continue other medications and care as ordered. Justification for Cont. Inpt. Monitoring for impairments in safety Discharge Planning Possible discharge tomorrow. Counselor has obtained permission to reach out to the patient's mother, Caron Marino at [phone] for collateral Request HC Surrog/Guard Advoc?: No Sai Wills MD Mar 03, 2017 11:14
[2017-03-03] MEDS: ASCORBIC ACID 500 MG TAB PO SCH (12:49)
--- NOTE | 2017-03-03 14:39 | RADRPT ---
EXAM DATE/TIME: 03/03/2017 14:16 [facility] COMPARISON: CHEST SINGLE AP, February 28, 2017, 9:21. INDICATIONS : Fall, right side chest pain. MEDICAL HISTORY : None. SURGICAL HISTORY : None. ENCOUNTER: Subsequent ACUITY: 1 day PAIN SCORE: 7/10 LOCATION: Right chest FINDINGS: PA and lateral views of the chest demonstrate the lungs to be symmetrically aerated without evidence of mass, infiltrate or effusion. The cardiomediastinal contours are unremarkable. Possible nondispla mariela fracture lateral aspect right 10th rib. CONCLUSION: 1. Possible nondisplaced fracture involving the lateral right 10th rib. 2. Otherwise, no focal or acute intrathoracic disease. Ronaldo Gomez MD on March 03, 2017 at 14:36 Board Certified Radiologist. This report was verified electronically.
[2017-03-03] MEDS: ACETAMINOPHEN 325 MG TAB PO PRN (17:39)
[2017-03-03] MEDS: REMOVE OLD NICODERM (NICOTINE) PATCH T-DERMAL SCH (21:00)
[2017-03-03] MEDS: NAPROXEN 500 MG TAB PO SCH (22:13)
[2017-03-04 06:13] VITALS: BP 116/62; PULSE 58; RESP 16; TEMP 97.8; O2SAT 99
[2017-03-04] MEDS: NAPROXEN 500 MG TAB PO SCH (08:29)
[2017-03-04] MEDS: GABAPENTIN 300 MG CAP PO SCH ×2 (08:29→13:07)
[2017-03-04] MEDS: FERROUS SULFATE 325 MG (65 MG ELEMENTAL IRON) TAB PO SCH (08:29)
[2017-03-04] MEDS: DULoxetine HCl DR 30 MG CAP PO SCH (08:29)
[2017-03-04] MEDS: ASCORBIC ACID 500 MG TAB PO SCH (08:29)
[2017-03-04] MEDS: NITROFURANTOIN MONOHYD MACROCR 100 MG CAP PO SCH (08:29)
[2017-03-04] MEDS: ACETAMINOPHEN 325 MG TAB PO PRN (08:31)
[2017-03-04] MEDS: NICOTINE 21 MG/24 HR PATCH T-DERMAL SCH (08:34)
[2017-03-04] MEDS ORDERED: PANTOPRAZOLE SOD 40 MG DELAYED RELEASE TAB PO SCH (09:00)
[2017-03-04] MEDS ORDERED: VITA500T2 PO (14:31)
[2017-03-04] MEDS ORDERED: DULO1CAP2 PO (14:31)
[2017-03-04] MEDS ORDERED: NAPR500 PO (14:31)
[2017-03-04] MEDS ORDERED: NITR100C4 PO (14:31)
[2017-03-04] MEDS ORDERED: PANT40TA3 PO (14:31)
[2017-03-04] MEDS ORDERED: FERR325T20 PO (14:31)
[2017-03-04] MEDS ORDERED: NEUR300C PO (14:31)
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
--- NOTE | 2017-03-04 14:46 | HHI.PR ---
Subjective Remarks Re- consult. Shoulder pain. Patient in nad, sleeping. Patient says had a fall a couple of days back and has 10 th rib fracture on xrays. CT head was negative. Patient complains of chest pain on the right and right shoulder pain. She is able to move her shoulder, neurovascular intact, has full range of motion. Patient says she is taking muscle relaxants at home she is asking for ucle relaxants and pain meds. No rash or bruises. No n/v/d/c. No other complaints. Objective Vitals Vital Signs Date Time Temp Pulse Resp B/P Pulse Ox O2 Delivery O2 Flow Rate FiO2 03/04/17 06:13 97.8 58 16 116/62 99 03/03/17 22:32 20 Result Diagram: 03/02/17 0716 Imaging Last Impressions Chest X-Ray 03/03/17 0000 Signed Impressions: Service Date/Time: February 14:16 - CONCLUSION: 1. Possible nondisplaced fracture involving the lateral right 10th rib. 2. Otherwise, no focal or acute intrathoracic disease. Ronaldo Gomez MD Head CT 03/02/17 0000 Signed Impressions: Service Date/Time: Thursday, March 02, 2017 12:52 - CONCLUSION: Normal examination. Rodo Ferrell MD Objective Remarks GENERAL: This is a well-nourished, well-developed patient, in no apparent distress. SKIN: No rashes, ecchymoses or lesions. Warm and dry. Right cheek is mildly erythematous, no significant pain on palpation. HEAD: Atraumatic. Normocephalic. No temporal or scalp tenderness. EYES: Pupils equal round and reactive. No injection or drainage. ENT: Nose without bleeding, purulent drainage or septal hematoma. Airway patent. NECK: Trachea midline. No lymphadenopathy. Supple, nontender, no meningeal signs. CARDIOVASCULAR: Regular rate and rhythm without murmurs, gallops, or rubs. No JVD. RESPIRATORY: Clear to auscultation. Breath sounds equal bilaterally. No wheezes , rales, or rhonchi. GASTROINTESTINAL: Abdomen soft, non-tender, nondistended. No guarding. MUSCULOSKELETAL: Extremities without clubbing, cyanosis, or edema. NEUROLOGICAL: Awake and alert. Cranial nerves II through XII intact. No focal neurological deficits. Normal speech. A/P Problem List: (1) Amphetamine abuse ICD Code: F15.10 Status: Acute (2) Adjustment disorder with mixed disturbance of emotions and conduct ICD Code: F43.25 Status: Acute Assessment and Plan Ms. Coe is a 46 year old female with a history of gastric bypass , iron deficiency anemia who was admitted under [place] act due to her attempt to cut her wrist. - Hypertension - Patient does not have any history of hypertension. Her BP has been within normal range. - No anti-hypertensives needed. -Poss Right 10th rib fracture. Manage conservatively. To follow up as OP with PCP. - Possible facial bone contusion - Apparently patient fell around noon. CT head negative - Icepack to face and acetaminophen would be reasonable. - Tobacco abuse - Counselled patient regarding tobacco abuse. Patient does not want to quit smoking at this point. - Iron deficiency anemia - Hgb 12.8, MCV 76.9. Iron studies added to the lab. - Iron tablets with Vitamin C would be worth trying again. Patient apparently does not absorb Oral Iron well. - She was previously followed by hematology and received Iron infusion. Last infusion 2 years ago. - Anemia can be followed by her PCP or preferably hematology upon discharge. - Will start Ferrous sulfate once a day with Vitamin C. - IF patient does not tolerate Ferrous sulfate, it can be discontinued. Patient is doing well from medical standpoint. Hemodynamically stable. Hemoglobin is within good range (12.8). We will sign off. Cleared for DC from hospitalist cristobal , patient to [facility] as OP with PCP and consultants. Yoana Saab MD Mar 04, 2017 14:46
== END 2017-03-04 15:55 | disposition home or self-care (01) | DRG 882 ==
LOC: H270 13:50 → H260 03-02 20:20
PROVIDERS: ADMIT Psychiatry & Neurology Psychiatry; ATTEND Psychiatry & Neurology Psychiatry
DX: F43.25 Adjustment disorder with mixed disturbance of emotions and conduct (principal); F15.10 Other stimulant abuse, uncomplicated; S22.39XA Fracture of one rib, unspecified side, initial encounter for closed fracture; S00.83XA Contusion of other part of head, initial encounter; W19.XXXA Unspecified fall, initial encounter; D50.9 Iron deficiency anemia, unspecified; F17.200 Nicotine dependence, unspecified, uncomplicated; G89.29 Other chronic pain; M54.2 Cervicalgia; M54.9 Dorsalgia, unspecified; Z98.84 Bariatric surgery status
CPT/HCPCS: 70450; 71020; 80048; 80061; 82728; 83036; 83540; 83550

== ENCOUNTER 2017-04-27 12:55 | Observation (INO) | payer OTHER ==
[~2017-04-27] VITALS: Ht 165.1 cm; Wt 72.7 kg
[~2017-04-27 12:55] MED LIST changes: -CELE50CA PO; +DULO1CAP2 PO; +FERR325T20 PO; -GABA300C5 PO; -LORA1TAB12 PO; -MACR100C2 PO; -MORP1CAP62 PO; +NAPR500 PO; +NEUR300C PO; -NEXI20CA PO; +NITR100C4 PO; +PANT40TA3 PO; -PERC10TA27 PO; -PHEN-556 PO; +VITA500T2 PO; -ZOLO50TA PO; -[UNRECOGNIZED DRUG - CODE] PO
[2017-04-27 13:51] VITALS: BP 130/87; PULSE 54; RESP 19; TEMP 97.8; O2SAT 98
[2017-04-27] MEDS ORDERED: SODIUM CHLOR 0.9% 1000 ML INJ 1,000 ML IV ONE (14:02)
--- NOTE | 2017-04-27 14:13 | PD ---
HPI Chief Complaint: OD/ Ingestion Time Seen by Provider: 13:59 Travel History International Travel<30 days: No Contact w/Intl Traveler<30days: No History of Present Illness HPI 46 y/o female presents with overdose of Zoloft. Report was that she took 30 pills. She states she took these at 11:30 because she wanted to kill herself. She states she's had thoughts of this before. She presents by ambulance. She states that her stomach is upset but denies other concurrent complaints. PFSH Past Medical History Hx Anticoagulant Therapy: No Anemia: Yes Arthritis: Yes (OA) Anxiety: Yes Diabetes: No Diminished Hearing: No Gastrointestinal Disorders: Yes (GERD) GERD: Yes Headaches: No Herniated Disk: Yes (Neck) Musculoskeletal: Yes (HERNIATED DISC NECK , ARTHRITIS) Psychiatric: Yes (Hx of treatment for anxiety and depression) Immunizations Current: No Tetanus Vaccination: Unknown ?: Not Menopausal: Yes : 4 Para: 5 Miscarriage: 0 : 0 Past Surgical History Abdominal Surgery: Yes (Gastric bypass, "tummy tuck") Cholecystectomy: Yes Hysterectomy: Yes Other Surgery: Yes (GASTRIC BYPASS, CHOLECYST.,, JUSTICE) Social History Alcohol Use: No (denies) Tobacco Use: Yes (1 PPD) Substance Use: Yes (methamphetimines, K2 ) Allergies-Medications (Allergen,Severity, Reaction): Coded Allergies: hydrocodone (Unverified Allergy, Severe, CANNOT BREATH, 04/27/17) jerry (Unverified Allergy, Severe, Swelling, 04/27/17) Reported Meds & Prescriptions Reported Meds & Active Scripts Active Pantoprazole (Pantoprazole Sodium) 40 Mg Tab 40 Mg PO DAILY 15 Days Nitrofurantoin Monohydrate Macrocrystals (Nitrofurantoin Monoh/Nitrofur Macro) 100 Mg Cap 100 Mg PO BIDPC 5 Days Naprosyn (Naproxen) 500 Mg Tab 500 Mg PO BID 7 Days See your PCP if pain does not improve within 1 week. Neurontin (Gabapentin) 300 Mg Cap 300 Mg PO QID 15 Days Ferosul (Ferrous Sulfate) 325 Mg Tablet 325 Mg PO DAILY [address] (Duloxetine HCl) 30 Mg Capdr 30 Mg PO DAILY 15 Days C 500/Luz Hips (Ascorbic Acid) 500 Mg Tab 500 Mg PO DAILY 15 Days Review of Systems Except as stated in HPI: all other systems reviewed are Neg Physical Exam Narrative GENERAL: Well-nourished, well-developed patient. SKIN: Warm and dry. HEAD: Normocephalic and atraumatic. EYES: No injection or drainage. ENT: No nasal drainage noted. NECK: Supple, trachea midline. CARDIOVASCULAR: Regular rate and rhythm RESPIRATORY: Breath sounds equal bilaterally. No accessory muscle use. GASTROINTESTINAL: Abdomen soft, non-tender, nondistended. EXTREMITIES: No edema. NEUROLOGICAL: Awake and alert. Motor and sensory grossly within normal limits. Normal speech. Data Data Last Documented VS Vital Signs Date Time Temp Pulse Resp B/P (MAP) Pulse Ox O2 Delivery O2 Flow Rate FiO2 04/27/17 14:19 99 Room Air 04/27/17 13:51 97.8 54 19 Orders Orders Electrocardiogram (04/27/17 14:02) Complete Blood Count With Diff (04/27/17 14:02) Comprehensive Metabolic Panel (04/27/17 14:02) Prothrombin Time / Inr (Pt) (04/27/17 14:02) Act Partial Throm Time (Ptt) (04/27/17 14:02) Iv Access Insert/Monitor (04/27/17 14:02) Ecg Monitoring (04/27/17 14:02) Oximetry (04/27/17 14:02) Sodium Chloride 0.9% Flush (Ns Flush) (04/27/17 14:15) Sodium Chlor 0.9% 1000 Ml Inj (Ns 1000 M (04/27/17 14:02) Call Poison Control (04/27/17 14:02) Drug Screen, Random Urine (04/27/17 14:02) Alcohol (Ethanol) (04/27/17 14:02) ^ Sitter (04/27/17 14:03) Serum Total Iron (Fe) (04/27/17 15:21) Tylenol (Acetaminophen) (04/27/17 15:22) Electrocardiogram (04/27/17 17:30) Admit Order (Ed Use Only) (04/27/17 15:48) Labs Laboratory Tests Test 04/27/17 14:05 White Blood Count 9.6 TH/MM3 Red Blood Count 4.86 MIL/MM3 Hemoglobin 12.4 GM/DL Hematocrit 37.4 % Mean Corpuscular Volume 77.0 FL Mean Corpuscular Hemoglobin 25.5 PG Mean Corpuscular Hemoglobin Concent 33.2 % Red Cell Distribution Width 14.3 % Platelet Count 345 TH/MM3 Mean Platelet Volume 7.2 FL Neutrophils (%) (Auto) 79.1 % Lymphocytes (%) (Auto) 15.2 % Monocytes (%) (Auto) 4.7 % Eosinophils (%) (Auto) 0.7 % Basophils (%) (Auto) 0.3 % Neutrophils # (Auto) 7.6 TH/MM3 Lymphocytes # (Auto) 1.5 TH/MM3 Monocytes # (Auto) 0.5 TH/MM3 Eosinophils # (Auto) 0.1 TH/MM3 Basophils # (Auto) 0.0 TH/MM3 CBC Comment DIFF FINAL Differential Comment Prothrombin Time 10.7 SEC Prothromb Time International Ratio 1.0 RATIO Activated Partial Thromboplast Time 24.2 SEC Blood Urea Nitrogen 17 MG/DL Creatinine 0.62 MG/DL Random Glucose 90 MG/DL Total Protein 7.5 GM/DL Albumin 2.8 GM/DL Calcium Level 8.6 MG/DL Alkaline Phosphatase 97 U/L Aspartate Amino Transf (AST/SGOT) 17 U/L Alanine Aminotransferase (ALT/SGPT) 23 U/L Total Bilirubin 0.3 MG/DL Sodium Level 138 MEQ/L Potassium Level 3.7 MEQ/L Chloride Level 106 MEQ/L Carbon Dioxide Level 24.9 MEQ/L Anion Gap 7 MEQ/L Estimat Glomerular Filtration Rate 104 ML/MIN Ethyl Alcohol Level LESS THAN 3 MG/DL MDM Medical Decision Making Medical Screen Exam Complete: Yes Emergency Medical Condition: Yes Medical Record Reviewed: Yes (pmh confirmed) Interpretation(s) CBC & BMP Diagram 04/27/17 14:05 Total Protein 7.5, Albumin 2.8 L, Calcium Level 8.6, Alkaline Phosphatase 97, Aspartate Amino Transf (AST/SGOT) 17, Alanine Aminotransferase (ALT/SGPT) 23, Total Bilirubin 0.3 Differential Diagnosis Overdose, coingestion, suicide attempt Narrative Course Will check blood work, EKG and have staff call Poison Control Center, outside window for charcoal use Patient has been with mild drowsiness here but will easily awaken to verbal stimuli. Given extent of ingestion and need for repeat EKG testing per Poison Control Center Will place in the hospital for further care, [facility] act placed and discussed with patient Physician Communication Physician Communication dr cortes agrees to admit Diagnosis Primary Impression: Overdose Qualified Codes: T50.902A - Poisoning by unspecified drugs, medicaments and biological substances, intentional self-harm, initial encounter Additional Impression: Suicidal behavior Qualified Codes: T14.91XA - Suicide attempt, initial encounter Admitting Information Admitting Physician Requests: it Sun Hurtado MD Apr 27, 2017 14:13
[2017-04-27] MEDS ORDERED: SODIUM CHLORIDE 0.9% FLUSH 10 ML FLUSH IVF PRN (14:15)
[2017-04-27 14:19] VITALS: O2SAT 99
[2017-04-27 14:21] LABS: AUTOMATED NEUTROPHIL # 7.6 TH/MM3 (1.8-7.7); BASOPHIL % 0.3 % (0.0-2.0); EOSINOPHIL # 0.1 TH/MM3 (0-0.4); EOSINOPHIL % 0.7 % (0.0-4.0); HEMATOCRIT 37.4 % (35.0-46.0); HEMO FLAGS DIFF FINAL; LYMPH % 15.2 % (9.0-44.0); LYMPHOCYTE # 1.5 TH/MM3 (1.0-4.8); MEAN CORPUSCULAR HEMOGLOBIN 25.5 PG (27.0-34.0); MEAN CORPUSCULAR HGB CONC 33.2 % (32.0-36.0); MONO % 4.7 % (0.0-8.0); NEUT % 79.1 % (16.0-70.0); PLATELET COUNT 345 TH/MM3 (150-450); RED BLOOD COUNT 4.86 MIL/MM3 (4.00-5.30); RED CELL DISTRIBUTION WIDTH 14.3 % (11.6-17.2); WHITE BLOOD COUNT 9.6 TH/MM3 (4.0-11.0)
[2017-04-27 14:35] LABS: APTT (PATIENT) 24.2 SEC (24.3-30.1); PROTHROMBIN TIME - PATIENT 10.7 SEC (9.8-11.6)
[2017-04-27 14:39] LABS: ALCOHOL LESS THAN 3 MG/DL (0-5); ALT (GPT) 23 U/L (10-53); ANION GAP 7 MEQ/L (5-15); AST (GOT) 17 U/L (15-37); BICARBONATE 24.9 MEQ/L (21.0-32.0); BLOOD UREA NITROGEN 17 MG/DL (7-18); CHLORIDE 106 MEQ/L (98-107); GLOMERULAR FILTRATION RATE 104 ML/MIN (>89); POTASSIUM 3.7 MEQ/L (3.5-5.1); SODIUM (NA) 138 MEQ/L (136-145)
[2017-04-27 14:42] LABS: ALKALINE PHOSPHATASE 97 U/L (45-117); TOTAL BILIRUBIN ADULT 0.3 MG/DL (0.2-1.0)
--- NOTE | 2017-04-27 15:51 | HHI.HP ---
HPI Service [facility] Primary Care Physician Александр Root Admission Diagnosis Diagnoses: Chief Complaint: OD/ Ingestion Travel History International Travel<30 Days: No Contact w/Intl Traveler <30 Da: No History of Present Illness This is a pleasant 46 y/o Female who came to ER with Overdose of Zoloft, Report was that she took 30 pills. She states she took these at 11:30 because she wanted to kill herself. She states she's had thoughts of this before. She presents by ambulance. She states that her stomach is full upset but denies other concurrent complaints. Seen in ER in the presence of Sitter, no new complaint, maintain good heart rate in 70 per minute, continue IV fluids and follow EKG later today, Review of Systems Constitutional: DENIES: Fever, Chills, Change in appetite Endocrine: DENIES: Heat/cold intolerance Eyes: DENIES: Blurred vision, Eye pain Except as stated in HPI: all other systems reviewed are Neg Past Family Social History Past Medical History Anemia OA Anxiety GERD herniated Disk neck Polysubstance abuse Tobacco dependence Past Surgical History Gastric bypass surgery Tummy tuck cholecystectomy JUSTICE Reported Medications Reported Meds & Active Scripts Active Pantoprazole (Pantoprazole Sodium) 40 Mg Tab 40 Mg PO DAILY 15 Days Nitrofurantoin Monohydrate Macrocrystals (Nitrofurantoin Monoh/Nitrofur Macro) 100 Mg Cap 100 Mg PO BIDPC 5 Days Naprosyn (Naproxen) 500 Mg Tab 500 Mg PO BID 7 Days See your PCP if pain does not improve within 1 week. Neurontin (Gabapentin) 300 Mg Cap 300 Mg PO QID 15 Days Ferosul (Ferrous Sulfate) 325 Mg Tablet 325 Mg PO DAILY [address] (Duloxetine HCl) 30 Mg Capdr 30 Mg PO DAILY 15 Days C 500/Luz Hips (Ascorbic Acid) 500 Mg Tab 500 Mg PO DAILY 15 Days Allergies: Coded Allergies: hydrocodone (Unverified Allergy, Severe, CANNOT BREATH, 04/27/17) jerry (Unverified Allergy, Severe, Swelling, 04/27/17) Active Ordered Medications Current Medications Medications (Trade) Dose Ordered Sig/Ngoc Route Start Time Stop Time Status Last Admin Sodium Chloride 1,000 ml @ 150 mls/hr Q6H40M IV 04/27/17 16:30 04/27/17 17:15 (NS Flush) 2 ml UNSCH PRN IV FLUSH 04/27/17 16:00 (NS Flush) 2 ml BID IV FLUSH 04/27/17 21:00 (Zofran Inj) 4 mg Q6H PRN IVP 04/27/17 16:00 (Lovenox Inj) 40 mg Q24H SQ 04/27/17 17:00 04/27/17 17:15 (Narcan Inj) 0.4 mg UNSCH PRN IV PUSH 04/27/17 16:00 (Roxana-Colace) 1 tab BID PO 04/27/17 21:00 (Milk Of Magnesia Liq) 30 ml Q12H PRN PO 04/27/17 16:00 (Senokot) 17.2 mg Q12H PRN PO 04/27/17 16:00 (Dulcolax Supp) 10 mg DAILY PRN RECTAL 04/27/17 16:00 (Lactulose Liq) 30 ml DAILY PRN PO 04/27/17 16:00 Family History Asked and denies. Social History Lives with her Children and her Mother Tobacco dependence one pack daily Methamphetamine, K2 Physical Exam Vital Signs Vital Signs Date Time Temp Pulse Resp B/P (MAP) Pulse Ox O2 Delivery O2 Flow Rate FiO2 04/27/17 14:19 99 Room Air 04/27/17 13:51 97.8 54 19 130/87 (101) 98 Room Air Physical Exam GENERAL: This is a well-nourished, well-developed patient, in no apparent distress. SKIN: No rashes, ecchymoses or lesions. Cool and dry. HEAD: Atraumatic. Normocephalic. No temporal or scalp tenderness. EYES: Pupils equal round and reactive. Extraocular motions intact. No scleral icterus. No injection or drainage. ENT: Nose without bleeding, purulent drainage or septal hematoma. Throat without erythema, tonsillar hypertrophy or exudate. Uvula midline. Airway patent. NECK: Trachea midline. No JVD or lymphadenopathy. Supple, nontender, no meningeal signs. CARDIOVASCULAR: Regular rate and rhythm without murmurs, gallops, or rubs. RESPIRATORY: Clear to auscultation. Breath sounds equal bilaterally. No wheezes , rales, or rhonchi. GASTROINTESTINAL: Abdomen soft, non-tender, nondistended. No hepato-splenomegaly , or palpable masses. No guarding. MUSCULOSKELETAL: Extremities without clubbing, cyanosis, or edema. No joint tenderness, effusion, or edema noted. No calf tenderness. Negative Homans sign bilaterally. NEUROLOGICAL: Awake and alert. Cranial nerves II through XII intact. Motor and sensory grossly within normal limits. Five out of 5 muscle strength in all muscle groups. Normal speech. Laboratory Laboratory Tests Test 04/27/17 14:05 White Blood Count 9.6 Red Blood Count 4.86 Hemoglobin 12.4 Hematocrit 37.4 Mean Corpuscular Volume 77.0 Mean Corpuscular Hemoglobin 25.5 Mean Corpuscular Hemoglobin Concent 33.2 Red Cell Distribution Width 14.3 Platelet Count 345 Mean Platelet Volume 7.2 Neutrophils (%) (Auto) 79.1 Lymphocytes (%) (Auto) 15.2 Monocytes (%) (Auto) 4.7 Eosinophils (%) (Auto) 0.7 Basophils (%) (Auto) 0.3 Neutrophils # (Auto) 7.6 Lymphocytes # (Auto) 1.5 Monocytes # (Auto) 0.5 Eosinophils # (Auto) 0.1 Basophils # (Auto) 0.0 CBC Comment DIFF FINAL Differential Comment Prothrombin Time 10.7 Prothromb Time International Ratio 1.0 Activated Partial Thromboplast Time 24.2 Blood Urea Nitrogen 17 Creatinine 0.62 Random Glucose 90 Total Protein 7.5 Albumin 2.8 Calcium Level 8.6 Alkaline Phosphatase 97 Aspartate Amino Transf (AST/SGOT) 17 Alanine Aminotransferase (ALT/SGPT) 23 Total Bilirubin 0.3 Sodium Level 138 Potassium Level 3.7 Chloride Level 106 Carbon Dioxide Level 24.9 Anion Gap 7 Estimat Glomerular Filtration Rate 104 Ethyl Alcohol Level LESS THAN 3 Result Diagram: 04/27/17 1405 04/27/17 1405 Caprini VTE Risk Assessment Caprini VTE Risk Assessment: No/Low Risk (score <= 1) Caprini Risk Assessment Model Point Value = 1 Point Value = 2 Point Value = 3 Point Value = 5 Age 41-60 Minor surgery BMI > 25 kg/m2 Swollen legs Varicose veins or History of unexplained or recurrent spontaneous Oral contraceptives or hormone replacement Sepsis (< 1 month) Serious lung disease, including pneumonia (< 1 month) Abnormal pulmonary function Acute myocardial infarction Congestive heart failure (< 1 month) History of inflammatory bowel disease Medical patient at bed rest Age 61-74 Arthroscopic surgery Major open surgery (> 45 min) Laparoscopic surgery (> 45 min) Malignancy Confined to bed (> 72 hours) Immobilizing plaster cast Central venous access Age >= 75 History of VTE Family history of VTE Factor V Leiden Prothrombin [id number] Lupus anticoagulant Anticardiolipin antibodies Elevated serum homocysteine Heparin-induced thrombocytopenia Other congenital or acquired thrombophilia Stroke (< 1 month) Elective arthroplasty Hip, pelvis, or leg fracture Acute spinal cord injury (< 1 month) Prophylaxis Regimen Total Risk Factor Score Risk Level Prophylaxis Regimen 0-1 Low Early ambulation 2 Moderate Order ONE of the following: *Sequential Compression Device (SCD) *Heparin 5000 units SQ BID 3-4 Higher Order ONE of the following medications: *Heparin 5000 units SQ TID *Enoxaparin/Lovenox 40 mg SQ daily (WT < 150 kg, CrCl > 30 mL/min) *Enoxaparin/Lovenox 30 mg SQ daily (WT < 150 kg, CrCl > 10-29 mL/min) *Enoxaparin/Lovenox 30 mg SQ BID (WT < 150 kg, CrCl > 30 mL/min) AND/OR *Sequential Compression Device (SCD) 5 or more Highest Order ONE of the following medications: *Heparin 5000 units SQ TID (Preferred with Epidurals) *Enoxaparin/Lovenox 40 mg SQ daily (WT < 150 kg, CrCl > 30 mL/min) *Enoxaparin/Lovenox 30 mg SQ daily (WT < 150 kg, CrCl > 10-29 mL/min) *Enoxaparin/Lovenox 30 mg SQ BID (WT < 150 kg, CrCl > 30 mL/min) AND *Sequential Compression Device (SCD) Assessment and Plan Assessment and Plan 1. Zoloft Overdose/Suicide attempt at this time [facility] acted, stable will continue to follow her as per Control Center to get new EKG and follow heart rate, consulted Psychiatry specialist 2. OA by history 3. Anxiety by history 4. GERD to continue gastric 5. Herniated Disk neck 6. Polysubstance abuse and Tobacco dependence strongly recommended to stop smoking. DVT prophylaxis with Lovenox Code Status Full Code. Discussed Condition With Sun Hurtado MD Physician Certification 2 Midnight Certification Type: Admission for Inpatient Services Order for Inpatient Services The services are ordered in accordance with Medicare regulations or non- Medicare payer requirements, as applicable. In the case of services not specified as inpatient-only, they are appropriately provided as inpatient services in accordance with the 2-midnight benchmark. Estimated LOS (days): 1 days is the estimated time the patient will need to remain in the hospital, assuming treatment plan goals are met and no additional complications. Post-Hospital Plan: Other (specify) (Inpaitnte) Notes: Inpatient Psychiatry unit. Som Damian MD Apr 27, 2017 3:51 pm
[2017-04-27] MEDS ORDERED: LACTULOSE SYRUP 20 GM/30 ML CUP PO PRN (16:00)
[2017-04-27] MEDS ORDERED: ONDANSETRON HCL 4 MG/2 ML VIAL IVP PRN (16:00)
[2017-04-27] MEDS ORDERED: SODIUM CHLORIDE 0.9% FLUSH 10 ML FLUSH IV FLUSH PRN (16:00)
[2017-04-27] MEDS ORDERED: NALOXONE HCL 0.4 MG/ML AMP IV PUSH PRN (16:00)
[2017-04-27] MEDS ORDERED: MAGNESIUM HYDROXIDE SUSP 30 ML CUP PO PRN (16:00)
[2017-04-27] MEDS ORDERED: BISACODYL 10 MG SUPP RECTAL PRN (16:00)
[2017-04-27] MEDS ORDERED: SENNOSIDES 8.6 MG TAB PO PRN (16:00)
[2017-04-27 17:00] VITALS: BP 123/84; PULSE 78; RESP 24; O2SAT 99
[2017-04-27 17:10] LABS: CREATINE KINASE 67 U/L (26-192)
[2017-04-27] MEDS: SODIUM CHLOR 0.9% 1000 ML INJ 1,000 ML IV SCH ×2 (17:15→20:23)
[2017-04-27] MEDS: ENOXAPARIN SODIUM 40 MG/0.4 ML SYRINGE SQ SCH (17:15)
[2017-04-27 20:00] VITALS: BP 137/85; PULSE 72; PULSE 78; RESP 16; TEMP 96.8; O2SAT 98
[2017-04-27] MEDS: SODIUM CHLORIDE 0.9% FLUSH 10 ML FLUSH IV FLUSH SCH (20:22)
[2017-04-27] MEDS: DOCUSATE SODIUM 50 MG/SENNA 8.6 MG TAB PO SCH (20:23)
[2017-04-27 22:46] LABS: CREATINE KINASE 52 U/L (26-192)
[2017-04-28] VITALS (7 sets, daily range): BP systolic 127–147; BP diastolic 69–90; PULSE 47–66; RESP 16–20; TEMP 96.3–98.7; O2SAT 97–98
[2017-04-28] MEDS: SODIUM CHLOR 0.9% 1000 ML INJ 1,000 ML IV SCH ×3 (05:50→19:10)
[2017-04-28] MEDS: SODIUM CHLORIDE 0.9% FLUSH 10 ML FLUSH IV FLUSH SCH ×2 (09:00→21:00)
[2017-04-28] MEDS: DOCUSATE SODIUM 50 MG/SENNA 8.6 MG TAB PO SCH ×2 (09:00→21:00)
[2017-04-28 09:38] LABS: AUTOMATED NEUTROPHIL # 3.2 TH/MM3 (1.8-7.7); BASOPHIL % 0.7 % (0.0-2.0); EOSINOPHIL # 0.1 TH/MM3 (0-0.4); EOSINOPHIL % 1.6 % (0.0-4.0); HEMO FLAGS DIFF FINAL; LYMPH % 38.2 % (9.0-44.0); LYMPHOCYTE # 2.4 TH/MM3 (1.0-4.8); MEAN CELL VOLUME 77.5 FL (80.0-100.0); MEAN CORPUSCULAR HEMOGLOBIN 25.1 PG (27.0-34.0); MEAN CORPUSCULAR HGB CONC 32.4 % (32.0-36.0); MONO % 7.5 % (0.0-8.0); PLATELET COUNT 328 TH/MM3 (150-450); RED BLOOD COUNT 4.51 MIL/MM3 (4.00-5.30); RED CELL DISTRIBUTION WIDTH 14.7 % (11.6-17.2); WHITE BLOOD COUNT 6.2 TH/MM3 (4.0-11.0)
[2017-04-28 10:07] LABS: ALKALINE PHOSPHATASE 119 U/L (45-117); ALT (GPT) 137 U/L (10-53); ANION GAP 7 MEQ/L (5-15); AST (GOT) 186 U/L (15-37); BICARBONATE 23.8 MEQ/L (21.0-32.0); BLOOD UREA NITROGEN 12 MG/DL (7-18); CHLORIDE 109 MEQ/L (98-107); GLOMERULAR FILTRATION RATE 114 ML/MIN (>89); POTASSIUM 3.9 MEQ/L (3.5-5.1); SODIUM (NA) 140 MEQ/L (136-145); TOTAL BILIRUBIN ADULT 0.2 MG/DL (0.2-1.0)
--- NOTE | 2017-04-28 11:32 | HHI.PR ---
Subjective Remarks The patient was talking with the psychiatric team. She said she has been getting over a bad cough. She said her heart rate normally runs in the mid to high 40s. No other acute complaints. Objective Vitals Vital Signs Date Time Temp Pulse Resp B/P (MAP) Pulse Ox O2 Delivery O2 Flow Rate FiO2 04/28/17 08:00 97.3 47 16 127/73 (91) 98 04/28/17 04:36 96.3 51 16 134/78 (96) 97 04/28/17 00:34 96.3 56 16 143/74 (97) 97 04/27/17 20:00 96.8 72 16 137/85 (102) 98 04/27/17 20:00 78 04/27/17 18:29 04/27/17 17:00 78 24 123/84 (97) 99 Room Air 04/27/17 14:19 99 Room Air 04/27/17 13:51 97.8 54 19 130/87 (101) 98 Room Air I/O 04/27/17 04/27/17 04/27/17 04/28/17 04/28/17 04/28/17 07:00 15:00 23:00 07:00 15:00 23:00 Intake Total 1000 ml Balance 1000 ml Intake IV Total 1000 ml # Voids 2 Result Diagram: 04/28/1781804/28/17818 Objective Remarks GENERAL: This is a well-nourished, well-developed patient, in no apparent distress. SKIN: No rashes, ecchymoses or lesions. Cool and dry. HEAD: Atraumatic. Normocephalic. No temporal or scalp tenderness. EYES: Pupils equal round and reactive. Extraocular motions intact. No scleral icterus. No injection or drainage. ENT: Nose without bleeding, purulent drainage or septal hematoma. Throat without erythema, tonsillar hypertrophy or exudate. Uvula midline. Airway patent. NECK: Trachea midline. No JVD or lymphadenopathy. Supple, nontender, no meningeal signs. CARDIOVASCULAR: Regular rate and rhythm without murmurs, gallops, or rubs. RESPIRATORY: Mild wheezing appreciated. GASTROINTESTINAL: Abdomen soft, slightly tender in the right upper quadrant, nondistended. No hepato-splenomegaly, or palpable masses. No guarding. MUSCULOSKELETAL: Extremities without clubbing, cyanosis, or edema. No joint tenderness, effusion, or edema noted. NEUROLOGICAL: Awake and alert. Cranial nerves II through XII intact. Motor and sensory grossly within normal limits. Five out of 5 muscle strength in all muscle groups. Normal speech. PSYCH: Slightly flattened affect. Medications and IVs Current Medications Medications (Trade) Dose Ordered Sig/Ngoc Route Start Time Stop Time Status Last Admin Sodium Chloride 1,000 ml @ 150 mls/hr Q6H40M IV 04/27/17 16:30 04/28/17 05:50 (NS Flush) 2 ml UNSCH PRN IV FLUSH 04/27/17 16:00 (NS Flush) 2 ml BID IV FLUSH 04/27/17 21:00 04/27/17 20:22 (Zofran Inj) 4 mg Q6H PRN IVP 04/27/17 16:00 04/28/17 10:57 (Lovenox Inj) 40 mg Q24H SQ 04/27/17 17:00 04/27/17 17:15 (Narcan Inj) 0.4 mg UNSCH PRN IV PUSH 04/27/17 16:00 (Roxana-Colace) 1 tab BID PO 04/27/17 21:00 (Milk Of Magnesia Liq) 30 ml Q12H PRN PO 04/27/17 16:00 (Senokot) 17.2 mg Q12H PRN PO 04/27/17 16:00 (Dulcolax Supp) 10 mg DAILY PRN RECTAL 04/27/17 16:00 (Lactulose Liq) 30 ml DAILY PRN PO 04/27/17 16:00 (Flu (Quadrivalent) Vaccine Inj) 0.5 ml ONCE ONCE IM 04/29/17 10:00 04/29/17 10:01 A/P Assessment and Plan Zoloft Overdose/Suicide attempt At this time [facility] acted. - per Poison Control Center repeat EKG and follow heart rate. - consulted psychiatry specialist. Sinus bradycardia The pt says she normally has a HR in the mid to high 40s. - repeat EKG. - telemetry. Elevated LFTs Possibly s/t overdose or alcohol use. - trend LFTs. - check hepatitis profile. - IVFs. Polysubstance abuse and tobacco dependence The pt still smokes and uses illicit substances. - strongly recommended to stop smoking and using illicit substances. DVT prophylaxis with Lovenox Discharge Planning Anticipate transfer to psychiatry in morning Pedrito Ybarra DO Apr 28, 2017 11:24
--- NOTE | 2017-04-28 14:28 | EKG ---
Date Performed: 04/27/2017 Time Performed: 17:29:23 PTAGE: 46 years EKG: SINUS BRADYCARDIA BORDERLINE ECG PREVIOUS TRACING : 04/27/2017 14.18 Compared to prior tracing no significant change DOCTOR: Yared Young Interpretating Date/Time 04/28/2017 14:26:55
--- NOTE | 2017-04-28 14:28 | EKG ---
Date Performed: 04/27/2017 Time Performed: 14:18:42 PTAGE: 46 years EKG: SINUS BRADYCARDIA WITH SINUS ARRHYTHMIA BORDERLINE ECG PREVIOUS TRACING : 02/28/2017 10.45 Since prior tracing, sinus rate is slower. DOCTOR: Yared Young Interpretating Date/Time 04/28/2017 14:26:41
--- NOTE | 2017-04-28 15:00 | PD.PSY.CON ---
Provisional Diagnosis Admission Date Apr 27, 2017 at 15:49 [place] I. Major depressive disorder, recurrent, severe, without psychosis, history of anxiety, benzodiazepines and amphetamines disorder [place] II. Unspecified personality disorder, strong cluster B traits [place] III. Chronic pain [place] IV. Poor social and family support [place] V. 40 History of Present Illness Service Psychiatry Consult Requested By Medical team Reason for Consult Suicidal attempt Primary Care Physician Александр RAYMUNDO The patient is a 46-year-old woman, domiciled with her mother in [place], unemployed, but , with psychiatric history of anxiety, depression, benzodiazepines and amphetamines use disorder, multiple psychiatric hospitalizations, she was hospitalized here in [place] in February 2017, she was initially admitted by me, history of incarcerations, she is under parole at this moment, medical history of arthritis, chronic pain, who was brought to the hospital after a suicidal attempt by overdosing with Zoloft. She is under poison control protocol. Also found with mild transaminitis. On psychiatric evaluation today patient is poorly cooperative, oppositional and resistant. She says that she is no supposed to be here and she is want to . She says that she took several pills, over 30, because she wanted to . Patient stated that he is overwhelmed, life is not worth it anymore, she has no reasons to live. Patient refuses to elaborate about the circumstances of emotions behind her suicide attempt. She says that she doesn't want to talk about it right now. Patient is more focused in somatic complaints, she reports nausea, pain, and is requesting medications. Patient also says that she has not been sleeping "and I need medications to sleep". Patient says that after she was discharged from here, she stopped taking her medications and no follow-up in outpatient. Reports daily use of amphetamines, medication for pain (prescribed , she says), denies alcohol and other illicit drugs. Review of Systems Constitutional: DENIES: Diaphoretic episodes, Fatigue, Fever, Weight gain, Weight loss, Chills, Dizziness, Change in appetite, Night Sweats Endocrine: DENIES: Abnorml menstrual pattern, Heat/cold intolerance, Polydipsia , Polyuria, Polyphagia Eyes: DENIES: Blurred vision, Diplopia, Eye inflammation, Eye pain, Vision loss , Photosensitivity, Double Vision Ears, nose, mouth, throat: DENIES: Tinnitus, Hearing loss, Vertigo, Nasal discharge, Oral lesions, Throat pain, Hoarseness, Ear Pain, Running Nose, Epistaxis, Sinus Pain, Toothache, Odynophagia Respiratory: DENIES: Apneas, Cough, Snoring, Wheezing, Hemoptysis, Sputum production, Shortness of breath Cardiovascular: DENIES: Chest pain, Palpitations, Syncope, Dyspnea on Exertion , PND, Lower Extremity Edema, Orthopnea, Claudication Gastrointestinal: COMPLAINS OF: Nausea, DENIES: Abdominal pain, Black stools, Bloody stools, Constipation, Diarrhea, Vomiting, Difficulty Swallowing, Anorexia Musculoskeletal: DENIES: Joint pain, Muscle aches, Stiffness, Joint Swelling, Back pain, Neck pain Integumentary: DENIES: Abnormal pigmentation, Pruritus, Rash, Nail changes, Breast masses, Breast skin changes, Nipple discharge Hematologic/lymphatic: DENIES: Bruising, Lymphadenopathy Immunologic/allergic: DENIES: Eczema, Urticaria Psychiatric: COMPLAINS OF: Depression, Suicidal Ideation, DENIES: Anxiety, Confusion, Mood changes, Hallucinations, Agitation, Homicidal Ideation, Delusions Past Family Social History Coded Allergies: hydrocodone (Unverified Allergy, Severe, CANNOT BREATH, 04/27/17) jerry (Unverified Allergy, Severe, Swelling, 04/27/17) Active Scripts Pantoprazole (Pantoprazole) 40 Mg Tab, 40 MG PO DAILY for Health for 15 Days, TAB 1 Refill Prov:Sai Wills MD 03/04/17 Nitrofurantoin Monohydrate Macrocrystals (Nitrofurantoin Monohydrate Macrocrystals) 100 Mg Cap, 100 MG PO BIDPC for UTI for 5 Days, CAP 0 Refills Prov:Sai Wills MD 03/04/17 Naproxen (Naprosyn) 500 Mg Tab, 500 MG PO BID for Pain Management for 7 Days, TAB 0 Refills See your PCP if pain does not improve within 1 week. Prov:Sai Wills MD 03/04/17 Gabapentin (Neurontin) 300 Mg Cap, 300 MG PO QID for Health for 15 Days, CAP 1 Refill Prov:Sai Wills MD 03/04/17 Ferrous Sulfate (Ferosul) 325 Mg Tablet, 325 MG PO DAILY for Iron deficiency for 15 Days, TAB 1 Refill Prov:Sai Wills MD 03/04/17 Duloxetine (Duloxetine DR) 30 Mg Capdr, 30 MG PO DAILY for Mental Health for 15 Days, CAP 1 Refill Prov:Sai Wills MD 03/04/17 Ascorbic Acid (C 500/Luz Hips) 500 Mg Tab, 500 MG PO DAILY for Health for 15 Days, TAB 1 Refill Prov:Sai Wills MD 03/04/17 Current Medications Medications (Trade) Dose Ordered Sig/Ngoc Route Start Time Stop Time Status Last Admin Sodium Chloride 1,000 ml @ 150 mls/hr Q6H40M IV 04/27/17 16:30 04/28/17 05:50 (NS Flush) 2 ml UNSCH PRN IV FLUSH 04/27/17 16:00 (NS Flush) 2 ml BID IV FLUSH 04/27/17 21:00 04/27/17 20:22 (Zofran Inj) 4 mg Q6H PRN IVP 04/27/17 16:00 04/28/17 10:57 (Lovenox Inj) 40 mg Q24H SQ 04/27/17 17:00 04/27/17 17:15 (Narcan Inj) 0.4 mg UNSCH PRN IV PUSH 04/27/17 16:00 (Roxana-Colace) 1 tab BID PO 04/27/17 21:00 (Milk Of Magnesia Liq) 30 ml Q12H PRN PO 04/27/17 16:00 (Senokot) 17.2 mg Q12H PRN PO 04/27/17 16:00 (Dulcolax Supp) 10 mg DAILY PRN RECTAL 04/27/17 16:00 (Lactulose Liq) 30 ml DAILY PRN PO 04/27/17 16:00 (Flu (Quadrivalent) Vaccine Inj) 0.5 ml ONCE ONCE IM 04/29/17 10:00 04/29/17 10:01 Family Psych History Patient denies family psychiatric history Social History Patient was born and raised in [place], she lives with her mother and poor [place], she is but , unemployed, her highest level of education is a college degree Patient's Strengths (min. 2) Verbal communication Physical Exam No tremors, no withdrawal, no EPS, no psychomotor agitation or retardation, no gait disturbance Vital Signs Vital Signs Date Time Temp Pulse Resp B/P (MAP) Pulse Ox O2 Delivery O2 Flow Rate FiO2 04/28/17 12:00 98.2 47 16 135/75 (95) 97 04/27/17 17:00 Room Air Lab Results Test 04/27/17 21:13 04/28/17 08:19 Total Creatine Kinase 52 U/L Troponin I LESS THAN 0.02 NG/ML White Blood Count 6.2 TH/MM3 Red Blood Count 4.51 MIL/MM3 Hemoglobin 11.3 GM/DL Hematocrit 35.0 % Mean Corpuscular Volume 77.5 FL Mean Corpuscular Hemoglobin 25.1 PG Mean Corpuscular Hemoglobin Concent 32.4 % Red Cell Distribution Width 14.7 % Platelet Count 328 TH/MM3 Mean Platelet Volume 8.0 FL Neutrophils (%) (Auto) 52.0 % Lymphocytes (%) (Auto) 38.2 % Monocytes (%) (Auto) 7.5 % Eosinophils (%) (Auto) 1.6 % Basophils (%) (Auto) 0.7 % Neutrophils # (Auto) 3.2 TH/MM3 Lymphocytes # (Auto) 2.4 TH/MM3 Monocytes # (Auto) 0.5 TH/MM3 Eosinophils # (Auto) 0.1 TH/MM3 Basophils # (Auto) 0.0 TH/MM3 CBC Comment DIFF FINAL Differential Comment Blood Urea Nitrogen 12 MG/DL Creatinine 0.57 MG/DL Random Glucose 83 MG/DL Total Protein 6.3 GM/DL Albumin 2.4 GM/DL Calcium Level 8.0 MG/DL Alkaline Phosphatase 119 U/L Aspartate Amino Transf (AST/SGOT) 186 U/L Alanine Aminotransferase (ALT/SGPT) 137 U/L Total Bilirubin 0.2 MG/DL Sodium Level 140 MEQ/L Potassium Level 3.9 MEQ/L Chloride Level 109 MEQ/L Carbon Dioxide Level 23.8 MEQ/L Anion Gap 7 MEQ/L Estimat Glomerular Filtration Rate 114 ML/MIN Mental Status Examination Appearance: Dirty, Disheveled Consciousness: Alert Orientation: x4 Motor Activity: Normal gait Speech: Slow Language: Adequate Fund of Knowledge: Adequate Attention and Concentration: Adequate Memory: Unremarkable Mood: Angry, Irritable Affect: Irritable Thought Process & Associations: Linear Thought Content: Appropriate Hallucination Type: None Delusion Type: None Suicidal Ideation: Yes Suicidal Plan: Yes Suicidal Intention: No Homicidal Ideation: No Homicidal Intention: No Insight: Poor Judgment: Poor Assessment & Plan Problem List: (1) Major depressive disorder, recurrent ICD Codes: F33.9 - Major depressive disorder, recurrent, unspecified Assessment & Plan: On psychiatric evaluation today patient is irritable, oppositional and resistant, providing just minimal information. She says that she wants to , that there is no reason for her to continue to live, she says that she regrets that she failed recent suicidal attempt. Patient has tried to commit suicide by overdosing with "over 30 pills of Zoloft". There are several elements of patient's psychiatric assessment that suggests secondary gain and also strong cluster B traits suggestive of borderline/antisocial personality disorder. However, due to the level of lethality of recent suicidal attempt, lack of collateral information, patient meets criteria for involuntary psychiatric admission for safety. I am not recommending any psychotropic at this moment. Avoid benzodiazepines, narcotics as much as possible. More longitudinal observation is needed in order to coordinate care/treatment/safe discharge plan. Extensive support, motivation and psychoeducation provided. Transfer patient to psychiatry once medically appropriate. Assessment & Plan Estimated LOS: Thomas Saavedra MD Apr 28, 2017 15:00
[2017-04-28] MEDS: ENOXAPARIN SODIUM 40 MG/0.4 ML SYRINGE SQ SCH (17:40)
[2017-04-29] VITALS: BP 137/83; PULSE 62; RESP 20; TEMP 98.5; O2SAT 97
[2017-04-29] MEDS: SODIUM CHLOR 0.9% 1000 ML INJ 1,000 ML IV SCH ×4 (01:50→15:10)
[2017-04-29 04:00] VITALS: BP 131/73; PULSE 52; RESP 18; TEMP 97.1; O2SAT 98
[2017-04-29 05:53] LABS: ANION GAP 6 MEQ/L (5-15); AST (GOT) 65 U/L (15-37); BICARBONATE 26.2 MEQ/L (21.0-32.0); BLOOD UREA NITROGEN 9 MG/DL (7-18); CHLORIDE 109 MEQ/L (98-107); GLOMERULAR FILTRATION RATE 122 ML/MIN (>89); POTASSIUM 3.7 MEQ/L (3.5-5.1); SODIUM (NA) 141 MEQ/L (136-145)
[2017-04-29 05:54] LABS: ALT (GPT) 110 U/L (10-53)
[2017-04-29 05:56] LABS: ALKALINE PHOSPHATASE 108 U/L (45-117); TOTAL BILIRUBIN ADULT 0.1 MG/DL (0.2-1.0)
[2017-04-29 08:00] VITALS: BP 128/78; PULSE 53; RESP 17; TEMP 97.4; O2SAT 97
[2017-04-29] MEDS: SODIUM CHLORIDE 0.9% FLUSH 10 ML FLUSH IV FLUSH SCH (09:44)
[2017-04-29] MEDS: DOCUSATE SODIUM 50 MG/SENNA 8.6 MG TAB PO SCH ×2 (09:45→09:51)
[2017-04-29] MEDS ORDERED: INFLUENZA VIRUS VACCINE (QUADRIVALENT) 0.5 ML SYR IM ONE (10:00)
[2017-04-29] MEDS ORDERED: VENTAER INH (11:30)
--- NOTE | 2017-04-29 11:31 | HHI.DCPOC ---
Discharge Care Plan Diagnosis: (1) Cough (2) Bradycardia (3) Major depressive disorder, recurrent (4) Suicidal behavior (5) Overdose Goals to Promote Your Health * To prevent worsening of your condition and complications * To maintain your health at the optimal level Directions to Meet Your Goals Take your medications as prescribed Follow your dietary instruction Follow activity as directed Keep your appointments as scheduled Take your immunizations and boosters as scheduled If your symptoms worsen call your PCP, if no PCP go to Urgent Care Center or Emergency Room Smoking is Dangerous to Your Health. Avoid second hand smoke Call the 24-hour hour crisis hotline for domestic abuse at Pedrito Ybarra DO Apr 29, 2017 11:31
--- NOTE | 2017-04-29 11:35 | HHI.PR ---
Subjective Remarks The pt complained of a cough for one week but otherwise had no other complaints. She understood that she would be transferred to psychiatry. Sitter was at the bedside. Discussed with nursing. Objective Vitals Vital Signs Date Time Temp Pulse Resp B/P (MAP) Pulse Ox O2 Delivery O2 Flow Rate FiO2 04/29/17 08:00 97.4 53 17 128/78 (95) 97 04/29/17 04:00 97.1 52 18 131/73 (92) 98 04/29/17 00:00 98.5 62 20 137/83 (101) 97 04/28/17 20:00 98.7 66 20 147/90 (109) 98 04/28/17 19:52 55 04/28/17 16:00 98.0 53 18 134/69 (90) 98 04/28/17 12:00 98.2 47 16 135/75 (95) 97 I/O 04/28/17 04/28/17 04/28/17 04/29/17 04/29/17 04/29/17 07:00 15:00 23:00 07:00 15:00 23:00 Intake Total 2354 ml 480 ml Balance 2354 ml 480 ml Intake Oral 1100 ml 480 ml IV Total 1254 ml # Voids 2 9 4 # Bowel Movements 0 0 Result Diagram: 04/28/17 0819 04/29/17 0420 Objective Remarks GENERAL: This is a well-nourished, well-developed patient, in no apparent distress. SKIN: No rashes, ecchymoses or lesions. Cool and dry. HEAD: Atraumatic. Normocephalic. No temporal or scalp tenderness. EYES: Pupils equal round and reactive. Extraocular motions intact. No scleral icterus. No injection or drainage. ENT: Nose without bleeding, purulent drainage or septal hematoma. Throat without erythema, tonsillar hypertrophy or exudate. Uvula midline. Airway patent. NECK: Trachea midline. No JVD or lymphadenopathy. Supple, nontender, no meningeal signs. CARDIOVASCULAR: Regular rate and rhythm without murmurs, gallops, or rubs. RESPIRATORY: Mild wheezing appreciated. GASTROINTESTINAL: Abdomen soft, slightly tender in the right upper quadrant, nondistended. No hepato-splenomegaly, or palpable masses. No guarding. MUSCULOSKELETAL: Extremities without clubbing, cyanosis, or edema. No joint tenderness, effusion, or edema noted. NEUROLOGICAL: Awake and alert. Cranial nerves II through XII intact. Motor and sensory grossly within normal limits. Five out of 5 muscle strength in all muscle groups. Normal speech. PSYCH: Mood and affect appropriate. Medications and IVs Current Medications Medications (Trade) Dose Ordered Sig/Ngoc Route Start Time Stop Time Status Last Admin Sodium Chloride 1,000 ml @ 150 mls/hr Q6H40M IV 04/27/17 16:30 04/29/17 01:50 (NS Flush) 2 ml UNSCH PRN IV FLUSH 04/27/17 16:00 (NS Flush) 2 ml BID IV FLUSH 04/27/17 21:00 04/27/17 20:22 (Zofran Inj) 4 mg Q6H PRN IVP 04/27/17 16:00 04/28/17 10:57 (Lovenox Inj) 40 mg Q24H SQ 04/27/17 17:00 04/28/17 17:40 (Narcan Inj) 0.4 mg UNSCH PRN IV PUSH 04/27/17 16:00 (Roxana-Colace) 1 tab BID PO 04/27/17 21:00 (Milk Of Magnesia Liq) 30 ml Q12H PRN PO 04/27/17 16:00 (Senokot) 17.2 mg Q12H PRN PO 04/27/17 16:00 (Dulcolax Supp) 10 mg DAILY PRN RECTAL 04/27/17 16:00 (Lactulose Liq) 30 ml DAILY PRN PO 04/27/17 16:00 A/P Assessment and Plan Zoloft Overdose/Suicide attempt At this time Claribel acted. Appreciated psychiatry recommendations. - per Poison Control Center repeat EKG and follow heart rate. Stable. - psychiatry recommending inpatient psych placement. Will d/c to psychiatry. Sinus bradycardia The pt says she normally has a HR in the mid to high 40s. - repeat EKG shows sinus bradycardia. Asymptomatic. - telemetry. Elevated LFTs Possibly s/t overdose or alcohol use. - trend LFTs. Improving. - check hepatitis profile. - IVFs. Polysubstance abuse and tobacco dependence The pt still smokes and uses illicit substances. - strongly recommended to stop smoking and using illicit substances. DVT prophylaxis with Lovenox Discharge Planning Transfer to psychiatry Pedrito Ybarra DO Apr 29, 2017 11:35
[2017-04-29 12:00] VITALS: BP 138/69; PULSE 55; RESP 19; TEMP 98.1; O2SAT 98
--- NOTE | 2017-04-29 13:06 | EKG ---
Date Performed: 04/28/2017 Time Performed: 11:59:32 PTAGE: 46 years EKG: SINUS BRADYCARDIA BORDERLINE ECG PREVIOUS TRACING : 04/27/2017 17.29 DOCTOR: Devon Ji Interpretating Date/Time 04/29/2017 13:03:29
== END 2017-04-29 16:26 ==
LOC: NEPE 12:55 → NEDA 15:49 → INTOOBSV 15:49 → N07B 18:27
PROVIDERS: ADMIT Hospitalist; ATTEND Hospitalist
DX: T43.222A Poisoning by selective serotonin reuptake inhibitors, intentional self-harm, initial encounter (principal); R40.0 Somnolence; R00.1 Bradycardia, unspecified; R94.31 Abnormal electrocardiogram [ECG] [EKG]; F33.9 Major depressive disorder, recurrent, unspecified; F17.200 Nicotine dependence, unspecified, uncomplicated; K21.9 Gastro-esophageal reflux disease without esophagitis; R79.89 Other specified abnormal findings of blood chemistry; Z23 Encounter for immunization; Z98.84 Bariatric surgery status
CPT/HCPCS: 80053; 80074; 80307; 82550; 83540; 84484; 85025; 85610; 85730; 93005; 96361; 96372; 96374; 99285; G0378; J1650; J2405; J7030; Q2038; 90686

== ENCOUNTER 2017-04-29 16:29 | Inpatient (IN) | payer OTHER ==
[~2017-04-29] VITALS: Ht 165.1 cm; Wt 69.2 kg
[~2017-04-29 16:29] MED LIST changes: +VENTAER INH
[2017-04-29 16:58] VITALS: BP 136/82; PULSE 57; RESP 18; TEMP 97.6; O2SAT 96
[2017-04-29] MEDS ORDERED: diphenhydrAMINE HCL 50 MG/ML VIAL - HS PRN IM (20:00)
[2017-04-29] MEDS ORDERED: MAGNESIUM HYDROXIDE SUSP 30 ML CUP PO PRN (20:00)
[2017-04-29] MEDS ORDERED: diphenhydrAMINE HCL 50 MG CAP - HS PRN PO (20:00)
[2017-04-29] MEDS ORDERED: ALUMINUM/MAGNESIUM/SIMETH 30 ML CUP PO PRN (20:00)
[2017-04-29] MEDS ORDERED: ACETAMINOPHEN 325 MG TAB PO PRN (20:00)
[2017-04-29] MEDS ORDERED: hydrOXYzine HCL 50 MG TAB PO PRN (20:00)
[2017-04-29] MEDS: REMOVE OLD NICOTINE PATCH T-DERMAL SCH (20:45)
[2017-04-29] MEDS ORDERED: ALBUTEROL SULFATE 90 MCG/ACT HFA 18 GM INHALER INH PRN (21:00)
[2017-04-30 06:13] VITALS: BP 113/70; PULSE 52; RESP 18; TEMP 97.9; O2SAT 96
[2017-04-30] MEDS ORDERED: PANTOPRAZOLE SOD 40 MG DELAYED RELEASE TAB PO SCH (09:00)
[2017-04-30] MEDS ORDERED: FERROUS SULFATE 325 MG (65 MG ELEMENTAL IRON) TAB PO SCH (09:00)
[2017-04-30] MEDS ORDERED: ASCORBIC ACID 500 MG TAB PO SCH (09:00)
[2017-04-30] MEDS: NICOTINE 21 MG/24 HR PATCH T-DERMAL SCH (09:23)
[2017-04-30 09:42] LABS: ANION GAP 6 MEQ/L (5-15); BICARBONATE 27.1 MEQ/L (21.0-32.0); BLOOD UREA NITROGEN 10 MG/DL (7-18); CHLORIDE 106 MEQ/L (98-107); GLOMERULAR FILTRATION RATE 93 ML/MIN (>89); POTASSIUM 3.6 MEQ/L (3.5-5.1); SODIUM (NA) 139 MEQ/L (136-145)
[2017-04-30 09:45] LABS: HDL CHOLESTEROL 35.9 MG/DL (40.0-60.0); LDL CHOLESTEROL 61 MG/DL (0-99)
[2017-04-30] MEDS ORDERED: ALBUTEROL SULFATE 90 MCG/ACT HFA 8 GM INHALER INH PRN (10:30)
[2017-04-30] MEDS ORDERED: ALUMINUM/MAGNESIUM/SIMETH 30 ML CUP PO PRN (10:30)
[2017-04-30] MEDS ORDERED: MAGNESIUM HYDROXIDE SUSP 30 ML CUP PO PRN (10:30)
[2017-04-30] MEDS ORDERED: diphenhydrAMINE HCL 50 MG CAP PO PRN (10:30)
[2017-04-30] MEDS ORDERED: hydrOXYzine HCL 50 MG TAB PO PRN (10:30)
[2017-04-30 10:53] LABS: HEMOGLOBIN A1a 1.8 %; HEMOGLOBIN A1b 1.7 %; HEMOGLOBIN Ao 84.1 %; HEMOGLOBIN LA1C 2.1 %; HEMOGLOBIN P3 3.9 %
[2017-04-30] MEDS: ARIPiprazole 10 MG TAB PO SCH (11:00)
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
--- NOTE | 2017-04-30 15:48 | PD.CONS ---
[facility] By Dr. Vicente Reason for Consult Medical management Primary Care Physician Александр Root Diagnoses: History of Present Illness This is a 46 y/o female who came to ER after an overdose of Zoloft. Report was that she took 30 pills. She states she took these at 11:30 because she wanted to kill herself. She states she's had thoughts of this before. She was treated on the medical floor. Poison control was notified and the pt's heart rate and EKGs were monitored. Psychiatry saw the pt on the medical floor. The pt continued to do well and was then transferred to psychiatry 04/29/17. The pt currently complains of a headache that seems to be affecting the top portion of her head. She also complains of a chronic cough that is not very productive. She has no other acute complaints at this time. She has been ambulating and tolerating a diet. Discussed with nursing at the bedside. Review of Systems Except as stated in HPI: all other systems reviewed are Neg Past Family Social History Allergies: Coded Allergies: hydrocodone (Unverified Allergy, Severe, CANNOT BREATH, 04/27/17) jerry (Unverified Allergy, Severe, Swelling, 04/27/17) Past Medical History Anemia OA Anxiety GERD Herniated disc in the neck Past Surgical History Gastric bypass surgery Tummy tuck Cholecystectomy JUSTICE Active Ordered Medications Current Medications Medications (Trade) Dose Ordered Sig/Ngoc Route Start Time Stop Time Status Last Admin (Habitrol 21 Mg Patch.24 Hr) 1 patch DAILY T-DERMAL 04/30/17 09:00 04/30/17 09:23 Miscellaneous Information 1 HS T-DERMAL 04/29/17 21:00 (Benadryl) 50 mg HS PRN PO 04/30/17 10:30 (Tylenol) 650 mg Q4H PRN PO 04/30/17 10:30 (Milk Of Magnesia Liq) 30 ml DAILY PRN PO 04/30/17 10:30 (Mag-Al Plus Susp Liq) 30 ml Q6H PRN PO 04/30/17 10:30 (Atarax) 50 mg Q6H PRN PO 04/30/17 10:30 (Proair Hfa Inh) 2 puff Q4H PRN INH 04/30/17 10:30 (Vitamin C) 500 mg DAILY PO 05/01/17 09:00 (Ferrous Sulfate) 325 mg DAILY PO 05/01/17 09:00 (Protonix) 40 mg DAILY PO 05/01/17 09:00 (Remeron) 15 mg HS PO 04/30/17 21:00 (Abilify) 10 mg DAILY PO 04/30/17 11:00 04/30/17 11:00 Family History Denies pertinent family history Social History Lives with her children and her mother Tobacco dependence, one pack daily Methamphetamine, K2 use Physical Exam Vital Signs Vital Signs Date Time Temp Pulse Resp B/P (MAP) Pulse Ox O2 Delivery O2 Flow Rate FiO2 04/30/17 06:13 97.9 52 18 113/70 (84) 96 04/29/17 16:58 97.6 57 18 136/82 (100) 96 Physical Exam GENERAL: This is a well-nourished, well-developed patient, in no apparent distress. SKIN: No rashes, ecchymoses or lesions. Cool and dry. HEAD: Atraumatic. Normocephalic. No temporal or scalp tenderness. Frontal and maxillary sinus tenderness noted. EYES: Pupils equal round and reactive. Extraocular motions intact. No scleral icterus. No injection or drainage. ENT: Nose without bleeding, purulent drainage or septal hematoma. Throat without erythema, tonsillar hypertrophy or exudate. Uvula midline. Airway patent. NECK: Trachea midline. No JVD or lymphadenopathy. Supple, nontender, no meningeal signs. CARDIOVASCULAR: Regular rate and rhythm without murmurs, gallops, or rubs. RESPIRATORY: CTAB. No W/R/R. GASTROINTESTINAL: Abdomen soft, nontender, nondistended. No hepato-splenomegaly , or palpable masses. No guarding. MUSCULOSKELETAL: Extremities without clubbing, cyanosis, or edema. No joint tenderness, effusion, or edema noted. NEUROLOGICAL: Awake and alert. Cranial nerves II through XII intact. Motor and sensory grossly within normal limits. Five out of 5 muscle strength in all muscle groups. Normal speech. PSYCH: Mood and affect appropriate. Laboratory Laboratory Tests Test 04/30/17 08:17 Blood Urea Nitrogen 10 Creatinine 0.68 Random Glucose 134 Calcium Level 8.7 Sodium Level 139 Potassium Level 3.6 Chloride Level 106 Carbon Dioxide Level 27.1 Anion Gap 6 Estimat Glomerular Filtration Rate 93 Hemoglobin A1c 5.9 Triglycerides Level 89 Cholesterol Level 115 LDL Cholesterol 61 HDL Cholesterol 35.9 Cholesterol/HDL Ratio 3.20 Result Diagram: 04/30/17 0817 Assessment and Plan Assessment and Plan Zoloft Overdose/Suicide attempt Care transferred to psychiatry. EKGs and HR have been stable. - management per psych. Sinus bradycardia The pt says she normally has a HR in the mid to high 40s. Repeat EKG showed sinus bradycardia. - monitor vitals per routine. Cough The pt complains of a cough x 1 week. - CXR pending. - Tessalon Perles ordered. Headache Possibly sinus headache. - trial of ibuprofen. Elevated LFTs Possibly s/t overdose or alcohol use. Hepatitis profile negative. - trend LFTs. Polysubstance abuse and tobacco dependence The pt still smokes and uses illicit substances. - strongly recommended to stop smoking and using illicit substances. PPx: Ambulation Discussed Condition With Pt, nurse Pedrito Ybarra DO Apr 30, 2017 15:48
[2017-04-30] MEDS ORDERED: BENZONATATE 100 MG CAP PO ONE (16:00)
[2017-04-30] MEDS ORDERED: IBUPROFEN 800 MG TAB PO ONE (16:00)
[2017-04-30 18:16] VITALS: BP 125/62; PULSE 58; RESP 16; TEMP 98.5; O2SAT 97
[2017-04-30] MEDS: REMOVE OLD NICOTINE PATCH T-DERMAL SCH (21:00)
[2017-04-30] MEDS: MIRTAZAPINE 15 MG TAB PO SCH (21:11)
--- NOTE | 2017-04-30 22:30 | RADRPT ---
EXAM DATE/TIME: 04/30/2017 22:19 [place] COMPARISON: CHEST SINGLE AP, February 28, 2017, 9:21. INDICATIONS : Cough. MEDICAL HISTORY : None. SURGICAL HISTORY : None. ENCOUNTER: Subsequent ACUITY: 2 days PAIN SCORE: 0/10 LOCATION: Bilateral chest FINDINGS: A single view of the chest demonstrates the lungs to be symmetrically aerated without evidence of mas s, infiltrate or effusion. The cardiomediastinal contours are unremarkable. Osseous structures are intact. CONCLUSION: No acute disease. Erick Aguilar MD on April 30, 2017 at 22:29 Board Certified Radiologist. This report was verified electronically.
[2017-05-01 05:31] VITALS: BP 131/69; PULSE 48; RESP 16; TEMP 97.6; O2SAT 97
[2017-05-01] MEDS: PANTOPRAZOLE SOD 40 MG DELAYED RELEASE TAB PO SCH (08:49)
[2017-05-01] MEDS: FERROUS SULFATE 325 MG (65 MG ELEMENTAL IRON) TAB PO SCH (08:49)
[2017-05-01] MEDS: ARIPiprazole 10 MG TAB PO SCH (08:49)
[2017-05-01] MEDS: NICOTINE 21 MG/24 HR PATCH T-DERMAL SCH (08:49)
[2017-05-01] MEDS: ASCORBIC ACID 500 MG TAB PO SCH (08:49)
[2017-05-01 11:26] LABS: ANION GAP 6 MEQ/L (5-15); AST (GOT) 16 U/L (15-37); BICARBONATE 29.2 MEQ/L (21.0-32.0); BLOOD UREA NITROGEN 11 MG/DL (7-18); CHLORIDE 107 MEQ/L (98-107); GLOMERULAR FILTRATION RATE 100 ML/MIN (>89); POTASSIUM 3.8 MEQ/L (3.5-5.1); SODIUM (NA) 142 MEQ/L (136-145)
[2017-05-01 11:27] LABS: ALT (GPT) 60 U/L (10-53)
[2017-05-01 11:29] LABS: ALKALINE PHOSPHATASE 113 U/L (45-117); TOTAL BILIRUBIN ADULT 0.1 MG/DL (0.2-1.0)
--- NOTE | 2017-05-01 14:33 | HHI.PYPN ---
Subjective Remarks Pt seen and discussed with staff. She remains flat and depressed. She has been in bed sleeping all day. She stated to RN that she was unhappy with her elaborate. Chief Complaint: patient overdose significant amounts of Zoloft and suicide attempt Mental Status Examination Appearance: Appropriate Consciousness: Alert Orientation: x4 Motor Activity: Normal gait Speech: Unremarkable Language: Adequate Fund of Knowledge: Adequate Attention and Concentration: Other (fair) Memory: Unremarkable Mood: Sad Affect: Other (decrease range and intensity) Thought Process & Associations: Linear Thought Content: Appropriate Hallucination Type: None Delusion Type: None Suicidal Ideation: Yes (denies it at this time) Suicidal Plan: Yes Suicidal Intention: No (denies any at this time) Homicidal Ideation: No Homicidal Plan: No Homicidal Intention: No Insight: Poor Judgment: Poor Results Labs Test 05/01/17 10:29 Blood Urea Nitrogen 11 MG/DL Creatinine 0.64 MG/DL Random Glucose 60 MG/DL Total Protein 7.3 GM/DL Albumin 2.7 GM/DL Calcium Level 8.9 MG/DL Alkaline Phosphatase 113 U/L Aspartate Amino Transf (AST/SGOT) 16 U/L Alanine Aminotransferase (ALT/SGPT) 60 U/L Total Bilirubin 0.1 MG/DL Sodium Level 142 MEQ/L Potassium Level 3.8 MEQ/L Chloride Level 107 MEQ/L Carbon Dioxide Level 29.2 MEQ/L Anion Gap 6 MEQ/L Estimat Glomerular Filtration Rate 100 ML/MIN Vitals/IOs Vital Signs Date Time Temp Pulse Resp B/P (MAP) Pulse Ox O2 Delivery O2 Flow Rate FiO2 05/01/17 05:31 97.6 48 16 131/69 (89) 97 Assessment & Plan Problem List: (1) Major depressive disorder, recurrent episode, moderate ICD Codes: F33.1 - Major depressive disorder, recurrent, moderate (2) Methamphetamine abuse ICD Codes: F15.10 - Other stimulant abuse, uncomplicated Assessment & Plan Estimated LOS: days Request HC Surrog/Guard Advoc?: Almita Urbano MD May 01, 2017 14:33
[2017-05-01 16:54] VITALS: BP 148/52; PULSE 66; RESP 18; TEMP 98.5; O2SAT 98
--- NOTE | 2017-05-01 18:41 | PD.PSY.CON ---
Provisional Diagnosis Admission Date Apr 29, 2017 at 16:32 [place]. Major depressive disorder recurrent moderate of 33.1, methamphetamine abuse F 15.10 History of Present Illness Service Psychiatry Consult Requested By Psychiatry Reason for Consult 2nd Opinion Primary Care Physician Александр Root HPI Pt seen and discussed with staff. Chart reviewed. Pt is a 46YOWF who was transferred from medical floor to psychiatry under a BA secondary to a suicide attempt via zoloft. Pt has a hx of depression and this is pt's 3rd suicide attempt via overdose in 3 months (previously hospitalized at [facility] in February 2017 for suicide attempt and at [facility] in [place] for suicide attempt). She also has a hx of comorbid methamphetamine addiction. Pt states that she is unhappy iwht her life and something has to change. She states that she is living with her mother and is from her of 20 years, is unemployed and recently lost her job. She denies any hx of substance abuse tx. She does not currently have any outpatient providers for mental health. Staff report that pt has slept all day and only come out of her room for meals. Review of Systems Psychiatric: COMPLAINS OF: Mood changes, Depression Past Family Social History Coded Allergies: hydrocodone (Unverified Allergy, Severe, CANNOT BREATH, 04/27/17) jerry (Unverified Allergy, Severe, Swelling, 04/27/17) Past Medical History depression, methamphetamine addiction Active Scripts Albuterol 18 GM Inh (Ventolin Hfa 18 GM Inh) 90 Mcg/Act Aer, 2 PUFF INH Q4H Y for SHORTNESS OF BREATH, #1 INHALER 0 Refills Prov:Pedrito Ybarra DO 04/29/17 Pantoprazole (Pantoprazole) 40 Mg Tab, 40 MG PO DAILY for Health for 15 Days, TAB 1 Refill Prov:Sai Wills MD 03/04/17 Ferrous Sulfate (Ferosul) 325 Mg Tablet, 325 MG PO DAILY for Iron deficiency for 15 Days, TAB 1 Refill Prov:Sai Wills MD 03/04/17 Ascorbic Acid (C 500/Luz Hips) 500 Mg Tab, 500 MG PO DAILY for Health for 15 Days, TAB 1 Refill Prov:Sai Wills MD 03/04/17 Discontinued Scripts Nitrofurantoin Monohydrate Macrocrystals (Nitrofurantoin Monohydrate Macrocrystals) 100 Mg Cap, 100 MG PO BIDPC for UTI for 5 Days, CAP 0 Refills Prov:Sai Wills MD 03/04/17 Naproxen (Naprosyn) 500 Mg Tab, 500 MG PO BID for Pain Management for 7 Days, TAB 0 Refills See your PCP if pain does not improve within 1 week. Prov:Sai Wills MD 03/04/17 Gabapentin (Neurontin) 300 Mg Cap, 300 MG PO QID for Health for 15 Days, CAP 1 Refill Prov:Sai Wills MD 03/04/[address] (Duloxetine DR) 30 Mg Capdr, 30 MG PO DAILY for Mental Health for 15 Days, CAP 1 Refill Prov:Sai Wills MD 03/04/17 Current Medications Medications (Trade) Dose Ordered Sig/Ngoc Route Start Time Stop Time Status Last Admin (Habitrol 21 Mg Patch.24 Hr) 1 patch DAILY T-DERMAL 04/30/17 09:00 05/01/17 08:49 Miscellaneous Information 1 HS T-DERMAL 04/29/17 21:00 (Benadryl) 50 mg HS PRN PO 04/30/17 10:30 (Tylenol) 650 mg Q4H PRN PO 04/30/17 10:30 (Milk Of Magnesia Liq) 30 ml DAILY PRN PO 04/30/17 10:30 (Mag-Al Plus Susp Liq) 30 ml Q6H PRN PO 04/30/17 10:30 (Atarax) 50 mg Q6H PRN PO 04/30/17 10:30 (Proair Hfa Inh) 2 puff Q4H PRN INH 04/30/17 10:30 (Vitamin C) 500 mg DAILY PO 05/01/17 09:00 05/01/17 08:49 (Ferrous Sulfate) 325 mg DAILY PO 05/01/17 09:00 05/01/17 08:49 (Protonix) 40 mg DAILY PO 05/01/17 09:00 05/01/17 08:49 (Remeron) 15 mg HS PO 04/30/17 21:00 04/30/17 21:11 (Abilify) 10 mg DAILY PO 04/30/17 11:00 05/01/17 08:49 (Tessalon) 200 mg TID PRN PO 04/30/17 16:00 Family Psych History depression history Social 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 Originally from [place]. Patient's Strengths (min. 2) access to care, verbal skills Physical Exam Vital Signs Vital Signs Date Time Temp Pulse Resp B/P (MAP) Pulse Ox O2 Delivery O2 Flow Rate FiO2 05/01/17 16:54 98.5 66 18 148/52 (84) 98 Lab Results Test 05/01/17 10:29 Blood Urea Nitrogen 11 MG/DL Creatinine 0.64 MG/DL Random Glucose 60 MG/DL Total Protein 7.3 GM/DL Albumin 2.7 GM/DL Calcium Level 8.9 MG/DL Alkaline Phosphatase 113 U/L Aspartate Amino Transf (AST/SGOT) 16 U/L Alanine Aminotransferase (ALT/SGPT) 60 U/L Total Bilirubin 0.1 MG/DL Sodium Level 142 MEQ/L Potassium Level 3.8 MEQ/L Chloride Level 107 MEQ/L Carbon Dioxide Level 29.2 MEQ/L Anion Gap 6 MEQ/L Estimat Glomerular Filtration Rate 100 ML/MIN Mental Status Examination Appearance: Appropriate Consciousness: Alert Orientation: x4 Motor Activity: Normal gait Speech: Unremarkable Language: Adequate Fund of Knowledge: Adequate Attention and Concentration: Other (fair) Memory: Unremarkable Mood: Sad Affect: Other (dysphoric) Thought Process & Associations: Linear Thought Content: Appropriate Hallucination Type: None Delusion Type: None Suicidal Ideation: Yes ("if something doesn't change") Suicidal Plan: Yes Suicidal Intention: No (denies any at this time) Homicidal Ideation: No Homicidal Plan: No Homicidal Intention: No Insight: Poor Judgment: Poor Assessment & Plan Problem List: (1) Major depressive disorder, recurrent episode, moderate ICD Codes: F33.1 - Major depressive disorder, recurrent, moderate (2) Methamphetamine abuse ICD Codes: F15.10 - Other stimulant abuse, uncomplicated Assessment & Plan Pt meets BA criteria. 2nd opinion completed. Estimated LOS: days Request HC Surrog/Guard Advoc?: No Almita Garces MD May 01, 2017 18:41
[2017-05-01] MEDS: REMOVE OLD NICOTINE PATCH T-DERMAL SCH (20:48)
[2017-05-01] MEDS: MIRTAZAPINE 15 MG TAB PO SCH (20:48)
[2017-05-02] MEDS: BENZONATATE 100 MG CAP PO PRN ×2 (05:39→21:02)
[2017-05-02 06:06] VITALS: BP 144/74; PULSE 56; RESP 18; TEMP 97.9; O2SAT 98
[2017-05-02] MEDS: PANTOPRAZOLE SOD 40 MG DELAYED RELEASE TAB PO SCH (08:18)
[2017-05-02] MEDS: ASCORBIC ACID 500 MG TAB PO SCH (08:18)
[2017-05-02] MEDS: ARIPiprazole 10 MG TAB PO SCH (08:18)
[2017-05-02] MEDS: FERROUS SULFATE 325 MG (65 MG ELEMENTAL IRON) TAB PO SCH ×2 (08:18→08:19)
[2017-05-02] MEDS: NICOTINE 21 MG/24 HR PATCH T-DERMAL SCH (08:59)
--- NOTE | 2017-05-02 13:20 | HHI.PYPN ---
Subjective Remarks Patient seen in her room with nurse Andria and medical student radha, patient compliant medications except for her iron she is refusing because the constipates her. Otherwise patient states she is feeling a little bit better denying suicidality of voices today. When she leaves she states sheTo stay with her mother Chief Complaint: patient overdose significant amounts of Zoloft and suicide attempt Review of Systems Except as stated in HPI: all other systems reviewed are Neg Mental Status Examination Appearance: Appropriate Consciousness: Alert Orientation: x4 Motor Activity: Normal gait Speech: Unremarkable Language: Adequate Fund of Knowledge: Adequate Attention and Concentration: Other (fair) Memory: Unremarkable Mood: Sad Affect: Other (dysphoric) Thought Process & Associations: Linear Thought Content: Appropriate Hallucination Type: None Delusion Type: None Suicidal Ideation: Yes ("if something doesn't change") Suicidal Plan: Yes Suicidal Intention: No (denies any at this time) Homicidal Ideation: No Homicidal Plan: No Homicidal Intention: No Insight: Poor Judgment: Poor Results Vitals/IOs Vital Signs Date Time Temp Pulse Resp B/P (MAP) Pulse Ox O2 Delivery O2 Flow Rate FiO2 05/02/17 06:06 97.9 56 18 144/74 (97) 98 Assessment & Plan Problem List: (1) Major depressive disorder, recurrent episode, moderate ICD Codes: F33.1 - Major depressive disorder, recurrent, moderate (2) Methamphetamine abuse ICD Codes: F15.10 - Other stimulant abuse, uncomplicated Assessment & Plan Estimated LOS: days patient continues depressed though her suicidality is slowly resolving. Compliant medication. For now continue treatment Justification for Cont. Inpt. With this time patient will decompensate and placed in a lower level of care Discharge Planning Patient to return to home with mother once stabilized Request HC Surrog/Guard Advoc?: No Rodo Vicente MD May 02, 2017 13:20
--- NOTE | 2017-05-02 16:23 | HHI.PR ---
Subjective Remarks The pt was in the common room. She had no complaints. She said she still has her cough, but it's improved at night. Discussed with nursing. Objective Vitals Vital Signs Date Time Temp Pulse Resp B/P (MAP) Pulse Ox O2 Delivery O2 Flow Rate FiO2 05/02/17 06:06 97.9 56 18 144/74 (97) 98 05/01/17 16:54 98.5 66 18 148/52 (84) 98 Result Diagram: 05/01/17 1029 Imaging Last Impressions Chest X-Ray 04/30/17 0000 Signed Impressions: Service Date/Time: Sunday, April 30, 2017 22:19 - CONCLUSION: No acute disease. Erick Aguilar MD Objective Remarks GENERAL: This is a well-nourished, well-developed patient, in no apparent distress. SKIN: No rashes, ecchymoses or lesions. Cool and dry. HEAD: Atraumatic. Normocephalic. No temporal or scalp tenderness. Frontal and maxillary sinus tenderness noted. EYES: Pupils equal round and reactive. Extraocular motions intact. No scleral icterus. No injection or drainage. ENT: Nose without bleeding, purulent drainage or septal hematoma. Throat without erythema, tonsillar hypertrophy or exudate. Uvula midline. Airway patent. NECK: Trachea midline. No JVD or lymphadenopathy. Supple, nontender, no meningeal signs. CARDIOVASCULAR: Regular rate and rhythm without murmurs, gallops, or rubs. RESPIRATORY: CTAB. No W/R/R. GASTROINTESTINAL: Abdomen soft, nontender, nondistended. No hepato-splenomegaly , or palpable masses. No guarding. MUSCULOSKELETAL: Extremities without clubbing, cyanosis, or edema. No joint tenderness, effusion, or edema noted. NEUROLOGICAL: Awake and alert. Cranial nerves II through XII intact. Motor and sensory grossly within normal limits. Five out of 5 muscle strength in all muscle groups. Normal speech. PSYCH: Mood and affect appropriate. Medications and IVs Current Medications Medications (Trade) Dose Ordered Sig/Ngoc Route Start Time Stop Time Status Last Admin (Benadryl) 50 mg HS PRN PO 04/30/17 10:30 (Tylenol) 650 mg Q4H PRN PO 04/30/17 10:30 (Milk Of Magnesia Liq) 30 ml DAILY PRN PO 04/30/17 10:30 (Mag-Al Plus Susp Liq) 30 ml Q6H PRN PO 04/30/17 10:30 (Atarax) 50 mg Q6H PRN PO 04/30/17 10:30 (Proair Hfa Inh) 2 puff Q4H PRN INH 04/30/17 10:30 (Vitamin C) 500 mg DAILY PO 05/01/17 09:00 05/02/17 08:18 (Ferrous Sulfate) 325 mg DAILY PO 05/01/17 09:00 05/01/17 08:49 (Protonix) 40 mg DAILY PO 05/01/17 09:00 05/02/17 08:18 (Remeron) 15 mg HS PO 04/30/17 21:00 05/01/17 20:48 (Abilify) 10 mg DAILY PO 04/30/17 11:00 05/02/17 08:18 (Tessalon) 200 mg TID PRN PO 04/30/17 16:00 05/02/17 05:39 A/P Assessment and Plan Zoloft Overdose/Suicide attempt Care transferred to psychiatry. EKGs and HR have been stable. - management per psych. Sinus bradycardia The pt says she normally has a HR in the mid to high 40s. Repeat EKG showed sinus bradycardia. - monitor vitals per routine. Stable. Cough The pt complains of a cough x 1 week. CXR unremarkable. Improving. - Tessalon Perles as needed. Headache Possibly sinus headache. No further complaints. - ibuprofen as needed. Elevated LFTs Possibly s/t overdose or alcohol use. Hepatitis profile negative. - trend LFTs. Improved. - outpt follow-up. Polysubstance abuse and tobacco dependence The pt still smokes and uses illicit substances. - strongly recommended to stop smoking and using illicit substances. PPx: Ambulation Discharge Planning Medicine will sign off on this stable pt. Please reconsult as needed. Pedrito Ybarra DO May 02, 2017 16:23
[2017-05-02 18:00] VITALS: BP 133/80; PULSE 18; RESP 18; TEMP 98; O2SAT 99
[2017-05-02] MEDS: ACETAMINOPHEN 325 MG TAB PO PRN (20:49)
[2017-05-02] MEDS: MIRTAZAPINE 15 MG TAB PO SCH (20:49)
[2017-05-03 05:56] VITALS: BP 125/71; PULSE 60; RESP 18; TEMP 98.3; O2SAT 96
[2017-05-03] MEDS: FERROUS SULFATE 325 MG (65 MG ELEMENTAL IRON) TAB PO SCH (09:00)
[2017-05-03] MEDS: ARIPiprazole 10 MG TAB PO SCH (10:02)
[2017-05-03] MEDS: ASCORBIC ACID 500 MG TAB PO SCH (10:02)
[2017-05-03] MEDS: PANTOPRAZOLE SOD 40 MG DELAYED RELEASE TAB PO SCH (10:02)
[2017-05-03] MEDS: ACETAMINOPHEN 325 MG TAB PO PRN (10:10)
[2017-05-03] MEDS ORDERED: PANT40TA3 PO (14:42)
[2017-05-03] MEDS ORDERED: ARIP1TAB12 PO (14:42)
[2017-05-03] MEDS ORDERED: VITA500T2 PO (14:42)
[2017-05-03] MEDS ORDERED: MIRTA15 PO (14:42)
[2017-05-03] MEDS ORDERED: FERR325T20 PO (14:42)
--- NOTE | 2017-05-03 14:45 | HHI.DS ---
Psychiatry Discharge Summary Inpatient Psychiatric care?: Yes Advance Directive: No Reason Not Provided: refused Mental Health AdvanceDirective: No Health Care Proxy: No Admission Admission Date Apr 29, 2017 at 16:32 Admission Diagnosis: (1) Major depressive disorder, recurrent episode, moderate ICD Code: F33.1 - Major depressive disorder, recurrent, moderate (2) Methamphetamine abuse ICD Code: F15.10 - Other stimulant abuse, uncomplicated Brief History Pt seen and discussed with staff. Chart reviewed. Pt is a 46YOWF who was transferred from medical floor to psychiatry under a BA secondary to a suicide attempt via zoloft. Pt has a hx of depression and this is pt's 3rd suicide attempt via overdose in 3 months (previously hospitalized at [facility] in February 2017 for suicide attempt and at [facility] in [place] for suicide attempt). She also has a hx of comorbid methamphetamine addiction. Pt states that she is unhappy iwht her life and something has to change. She states that she is living with her mother and is from her of 20 years, is unemployed and recently lost her job. She denies any hx of substance abuse tx. She does not currently have any outpatient providers for mental health. Staff report that pt has slept all day and only come out of her room for meals. Tobacco Use In Past 30 Days: 5 or More Cigarettes/Day Alcohol Use: Never Hospital Course Patient's hospital course was uneventful, her initial isolation softened became more trusting of the unit on the staff. And became more compliant with the medications. She did have a good weekend. Today patient denies suicidality homicidality voices or visions. Is talked with her mother and her children the also feel that she is ready to return home to them. Patient is willing to do this also. Thus patient will be discharged today to herself returning home with her mother and children. The Rx times a month to follow Gustavo Marchman act medication management in the community or other clinician if indicated Results Blood Pressure 125 / 71 Vital Signs Date Time Temp Pulse Resp B/P (MAP) Pulse Ox O2 Delivery O2 Flow Rate FiO2 05/03/17 05:56 98.3 60 18 125/71 (89) 96 Laboratory Tests Test 05/01/17 10:29 Random Glucose 60 MG/DL (74-106) Albumin 2.7 GM/DL (3.4-5.0) Alanine Aminotransferase (ALT/SGPT) 60 U/L (10-53) Total Bilirubin 0.1 MG/DL (0.2-1.0) Laboratory Results Test 04/30/17 08:17 Cholesterol Level 115 MG/DL (120-200) HDL Cholesterol 35.9 MG/DL (40.0-60.0) Hemoglobin A1c 5.9 % (4.3-6.0) LDL Cholesterol 61 MG/DL (0-99) Triglycerides Level 89 MG/DL (42-150) Summary of Procedures None done Imaging Last Impressions Chest X-Ray 04/30/17 0000 Signed Impressions: Service Date/Time: Sunday, April 30, 2017 22:19 - CONCLUSION: No acute disease. Erick Aguilar MD Pending results at discharge: No Medications # of Antipsychotic meds at D/C: 1 Approp Antipsych med options 1 - Minimum of three failed multiple trials of monotherapy. 2 - Documented plan to taper to monotherapy due to previous use of multiple meds OR cross-taper in progress at D/C. 3 - Documentation of augmentation of Clozapine. 4 - Justification other than those listed in allowable values 1-3, document here : Discharge Discharge Date: May 03, 2017 Discharge Diagnosis: (1) Methamphetamine abuse Diagnosis: Secondary ICD Code: F15.10 - Other stimulant abuse, uncomplicated (2) Major depressive disorder, recurrent episode, moderate Diagnosis: Principal ICD Code: F33.1 - Major depressive disorder, recurrent, moderate Pt Condition on Discharge: Stable Discharge Disposition: Discharge Home Discharge Instructions Diet Instructions: As Tolerated, No Restrictions Activities you can perform: Regular-No Restrictions Scheduled Appointment: Gustavo Duenas Discharge Time > 30 minutes Mental Status Examination Appearance: Appropriate Consciousness: Alert Orientation: x4 Motor Activity: Normal gait Speech: Unremarkable Language: Adequate Fund of Knowledge: Adequate Attention and Concentration: Other (fair) Memory: Unremarkable Mood: Sad Affect: Other (dysphoric) Thought Process & Associations: Linear Thought Content: Appropriate Hallucination Type: None Delusion Type: None Suicidal Ideation: Yes ("if something doesn't change") Suicidal Plan: Yes Suicidal Intention: No (denies any at this time) Homicidal Ideation: No Homicidal Plan: No Homicidal Intention: No Insight: Poor Judgment: Poor Discharge/Advance Care Plan Health Problems: (1) Major depressive disorder, recurrent episode, moderate (2) Methamphetamine abuse Goals to promote your health * To prevent worsening of your condition and complications * To maintain your health at the optimal level Directions to meet your goals Take your medications as prescribed Follow your dietary instruction Follow activity as directed Keep your appointments as scheduled Take your immunizations and boosters as scheduled If your symptoms worsen call your PCP, if no PCP go to Urgent Care Center or Emergency Room For 14/02 questions related to your inpatient stay or results of tests pending at discharge, please contact Dr. Rodo Vicente at Smoking is Dangerous to Your Health. Avoid second hand smoking Rodo Vicente MD May 03, 2017 14:45
== END 2017-05-03 18:05 | disposition home or self-care (01) | DRG 885 ==
LOC: H260 16:32
PROVIDERS: ADMIT Psychiatry & Neurology Psychiatry; ATTEND Psychiatry & Neurology Psychiatry
DX: F33.1 Major depressive disorder, recurrent, moderate (principal); R00.1 Bradycardia, unspecified; F15.10 Other stimulant abuse, uncomplicated; Z91.5 Personal history of self-harm; Z91.410 Personal history of adult physical and sexual abuse; R51 Headache; R05 Cough; M19.90 Unspecified osteoarthritis, unspecified site; K21.9 Gastro-esophageal reflux disease without esophagitis; Z98.84 Bariatric surgery status; F41.9 Anxiety disorder, unspecified; F17.200 Nicotine dependence, unspecified, uncomplicated; R79.89 Other specified abnormal findings of blood chemistry
CPT/HCPCS: 71010; 80048; 80053; 80061; 83036